=== PATIENT | male | born 1935 | race Caucasian/White ===

== ENCOUNTER 2019-05-13 16:56 | Emergency (ER) | payer MEDICARE, OTHER, SELFPAY ==
[2019-05-13 17:00] VITALS: BP 90/60; PULSE 69; RESP 18; TEMP 36.8; O2SAT 96; BMI 23.1
--- NOTE | 2019-05-13 17:10 | ED_ITS ---
Entered by Lu Otto, acting as scribe for Documented by User: Magen Camarillo MD 05/13/19 21:02 HPI - Abdominal Pain General: Chief Complaint: Abdominal Pain Stated Complaint: POSSIBLE BOWEL OBSTRUCTION Time Seen by Provider: 05/13/19 17:02 [facility] ED PFSH: Social History Smoking and tobacco status: current every day smoker Course Vital Signs: Vital signs: Vital Signs Temperature 98.3 F 05/13/19 17:00 Pulse Rate 92 05/13/19 20:12 Respiratory Rate 18 05/13/19 17:00 Blood Pressure 144/82 05/13/19 20:12 Pulse Oximetry 95 05/13/19 20:12 MDM - Abdominal Pain MDM Narrative: Medical decision making narrative: I took patient over from Dr. Maria. Patient feels much improved here after a bowel movement has no more pain. I did go over his CT findings including the possible mass along with pancreatic pseudocyst. His lipase is mildly elevated here but he has no pain in his epigastric region. He does have a colitis and will start him on Levaquin. Patient is requesting discharge I feel he is stable for discharge. He has an oncologist that he had a scan 2 weeks ago and has follow-up with his oncologist. I will print out his CT report and he is to follow-up with his oncologist within a week and go over this. If he has any worsening or pain he is to return immediately. Patient understands agrees to plan. Lab Data: Labs: Lab Results 05/13/19 05/13/19 05/13/19 Range/Units 17:21 17:21 19:32 WBC 10.9 H (4.0-10.0) 10^3/ uL RBC 4.12 (4.1-5.3) 10^6/u L Hgb 13.4 (11.7-16.6) g/dL Hct 42.7 (42.0-52.0) % MCV 103.6 H (80-94) fL MCH 32.5 (28.0-34.0) pg MCHC 31.4 (30.0-36.0) g/dL RDW 15.8 H (12.1-15.1) % Plt Count 175 (130-400) 10^3/c mm MPV 9.9 (7.4-10.4) fL Neut % (Auto) 91.8 % Lymph % (Auto) 5.1 % [place] % (Auto) 1.8 % Eos % (Auto) 0.3 % Baso % (Auto) 0.3 % Neut # (Auto) 10.0 H (1.8-7.7) 10^3/u L Lymph # (Auto) 0.6 L (0.8-4.8) 10^3/u L [place] # (Auto) 0.2 (0.2-0.9) 10^3/u L Eos # (Auto) 0.0 (0.0-0.8) 10^3/u L Baso # (Auto) 0.0 (0.0-0.1) 10^3/u L Nucleated RBC % (a uto) 0 % Nucleated RBCs # 0.0 /100WBC Sodium 138 (136-145) mmol/L Potassium 4.5 (3.5-5.1) mmol/L Chloride 104 (98-107) mmol/L Carbon Dioxide 22 (22-29) mmol/L Anion Gap 16.5 (5-19) BUN 23 (8-23) mg/dL Creatinine 1.0 (0.7-1.2) mg/dL Glucose 252 H (65-115) mg/dL Calculated Osmolal ity 291 (285-295) mOsm/k g Calcium 9.8 (8.5-10.5) mg/dL Total Bilirubin 1.4 H (0.15-1.2) mg/dL AST 19 (0-40) U/L ALT 31 (0-41) U/L Alkaline Phosphata se 82 (40-130) IU/L Total Protein 6.6 (6.6-8.7) g/dL Albumin 3.5 (3.5-5.2) g/dL Globulin 3.1 (1.3-4.6) g/dL Lipase 475 H (13-60) U/L Urine Color Straw (Yellow) Urine Appearance Clear (CLEAR) Urine pH 5 (5-7) Ur Specific Gravit y 1.005 (1.005-1.030) Urine Protein Neg (Negative) Urine Glucose (UA) Trace H (Normal) Urine Ketones Negative (Negative) Urine Blood 2+ H (Negative) Urine Nitrate Negative (Negative) Urine Bilirubin Neg (NEGATIVE) Urine Urobilinogen Norm (Negative) mg/dL Ur Leukocyte Kasey ase Negative (Negative) Urine RBC 0-4 H (0-2) /hpf Urine WBC None (0-5) /hpf Ur Squamous Epith Cells None (0-5) Urine Bacteria 1+ H (NONE) Hyaline Casts 0-4 H Imaging Data ^: CT Abd/Pel: Radiologist's impression: [address] [address] [address] Scan Report Signed Patient: Max Hidalgo Unit #: [id number] : 1935 Age/Sex: 84 / M ADM Date: 05/13/19 Loc: ER Room/Bed: Attending Dr: Ordering Provider/Ordering MD: Alejo Davis DO Date of Service: 05/13/19 Procedure(s): CT abdomen pelvis w con* [id number] Accession Number(s): [id number] Report Number: [id number] PROCEDURE INFORMATION: Exam: CT Abdomen And Pelvis With Contrast Exam date and time: 05/13/2019 6:23 PM Age: 84 years old Clinical indication: Other: Diarrhea; Abdominal pain; Prior surgery; Surgery type: Pacemaker, gb; Additional info: Abd pain TECHNIQUE: Imaging protocol: Computed tomography of the abdomen and pelvis with intravenous contrast. Total DLP: 850.93 mGy-cm Radiation optimization: All CT scans at this facility use at least one of these dose optimization techniques: automated exposure control; mA and/or kV adjustment per patient size (includes targeted exams where dose is matched to clinical indication); or iterative reconstruction. Contrast material: OMNI 300; Contrast volume: 95 ml; Contrast route: LT HAND; COMPARISON: No relevant prior studies available. FINDINGS: Heart: Mitral annulus calcifications. Mediastinum: Hiatal hernia. Liver: Normal. No mass. Gallbladder and bile ducts: Cholecystectomy. The bile ducts are normal. Pancreas: Coarse calcifications scattered throughout the pancreas. 1.5 cm cyst in the pancreatic tail. Spleen: Normal. No splenomegaly. Adrenals: Normal. No mass. Kidneys and ureters: Fluid density cysts in the bilateral kidneys. 4.4 cm soft tissue density lesion in the superior right kidney. Stomach and bowel: Mild fluid distention of the stomach. The small bowel is unremarkable. Mild fluid distension of the proximal and transverse colon. The splenic flexure, descending, and sigmoid portions of the colon are decompressed with circumferential wall thickening. Diverticulosis of the descending and sigmoid colon. Appendix: No evidence of appendicitis. Intraperitoneal space: Unremarkable. No free air. No significant fluid collection. Vasculature: Diffuse atherosclerotic calcifications. Lymph nodes: Unremarkable. No enlarged lymph nodes. Bladder: Mild distention of the urinary bladder. No wall thickening. Reproductive: Enlarged prostate with coarse calcifications. Bones/joints: Degenerative lumbar spine. No compression fracture. Soft tissues: Small fat containing umbilical hernia. CT/CT abdomen pelvis w con* [id number] IMPRESSION: 1. Wall thickening of the left colon, consistent with infectious versus inflammatory colitis. Mild fluid distention of the proximal colon. 2. Diverticulosis of the distal colon. 3. 4.4 cm soft tissue density lesion in the superior right kidney. This could represent a proteinaceous cyst or solid neoplasm. Follow-up with renal ultrasound is recommended. 4. 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 This could represent a pseudocyst or cystic neoplasm such as at intraductal papillary mucinous neoplasm. Discharge Plan Discharge Patient Disposition: Home, Self-Care Clinical Impression: Colitis Constipation Qualifiers: Constipation type: unspecified constipation type Qualified Code(s): K59.00 - Constipation, unspecified Condition: Stable Prescriptions: New Levaquin 750 mg tablet 750 mg PO DAILY 5 Days RF: 0 No Action terazosin 5 mg capsule 5 mg PO DAILY RF: 0 atorvastatin 40 mg tablet 20 mg PO DAILY RF: 0 glipizide 10 mg tablet extended release 24hr 10 mg PO DAILY RF: 0 prednisone 5 mg tablet See Rx Instructions .ROUTE .COMPLEX RF: 0 quinapril 40 mg tablet 40 mg PO DAILY RF: 0 nortriptyline 25 mg capsule 25 mg PO BEDTIME PRN (Reason: Insomnia) RF: 0 tamsulosin 0.4 mg capsule 0.4 mg PO DAILY RF: 0 metformin 1,000 mg tablet 1,000 mg PO DAILY RF: 0 finasteride 5 mg tablet 5 mg PO DAILY RF: 0 Xarelto 20 mg tablet 20 mg PO DAILY RF: 0 Fiber (psyllium husk) 0.4 gram Capsule 0.4 g PO DAILY RF: 0 Discharge Orders: Discharge Order (Routine); Ordered 05/13/19 Ordered By: Magen Camarillo Referrals: Nic Wang MD [Primary Care Provider] - Discharge Diet: Advance as tolerated Discharge Activity: Resume usual activity Patient Instructions: Constipation (ED) Discharge Date/Time: 05/13/19 20:12 Coding Level of Care Code ED Options Advisor for Chg Fwd Exam Comprehensive Documented by User: Alejo Davis DO 05/14/19 15:42 HPI - Abdominal Pain General: Chief Complaint: Abdominal Pain Stated Complaint: POSSIBLE BOWEL OBSTRUCTION Time Seen by Provider: 05/13/19 17:02 Source: patient, family and EMS Mode of arrival: EMS Limitations: no limitations History of Present Illness: HPI narrative: 84 yo male presents with abdomen pain. pt states this started today. pt has had constipation. pt states nothing makes this better or worse. pt MD elicited complaint: abdominal pain Pertinent past history: constipation Onset (ago): day(s) (today) Pain Consistency: constant Location: Diffuse Severity: moderate Quality: sharp Exacerbating factors: movement Relieving factors: nothing Associated Symptoms: Reports change in bowel habits, constipation, nausea and vomiting; Denies chills, dysuria and fever(s) Review of Systems Const: Denies: fever, chills, body aches, change in appetite, fatigue or malaise ENMT: Denies: throat pain, ear pain, nasal discharge or nasal congestion Card: Denies: chest pain, edema, shortness of breath on exertion or shortness of breath when lying down Resp: Denies: shortness of breath, productive cough or non-productive cough GI: Reports: nausea, vomiting, constipation and change in bowel habits : Denies: flank pain, painful urination, urinary frequency or urinary urgency Skin/Breast: Denies: rash or itching PFSH ED PFSH: Social History Smoking and tobacco status: current every day smoker Physical Exam Const: COMMON NORMALS: no apparent distress GENERAL APPEARANCE: cooperative and comfortable ORIENTATION/CONSCIOUSNESS: Yes awake, Yes oriented to person, Yes oriented to place and Yes oriented to time HENMT: COMMON NORMALS: normocephalic, head/scalp atraumatic, hearing grossly normal bilaterally, external ears normal, EAC's normal, TM's normal bilaterally, nasal mucous membranes and turbinates normal, moist oral mucous membranes and oropharynx normal HEAD & SCALP: normocephalic and atraumatic NOSE: nasal mucous membranes and turbinates normal EXTERNAL EAR: Yes external ears normal EXTERNAL AUDITORY CANAL: EAC's normal TYMPANIC MEMBRANE: TM's normal devon aterally Eye: COMMON NORMALS: PERRL, EOMs intact bilaterally, conjunctivae normal and no scleral icterus CONJUNCTIVA: Yes conjunctivae normal PUPIL: Yes PERRL Neck/C-Spine: COMMON NORMALS: full ROM, no lymphadenopathy, supple and no JVD Lymph: LYMPHATIC: no lymphadenopathy noted and no lymphedema noted Resp: COMMON NORMALS: normal respiratory effort, no retractions, no use of accessory muscles and clear to auscultation bilaterally AUSCULTATION: clear to auscultation bilaterally Cardio: COMMON NORMALS: no JVD, regular rate, regular rhythm and no murmurs RATE: regular rate RHYTHM: regular rhythm Extremity: COMMON NORMALS: normal to inspection, normal capillary refill, no clubbing, cyanosis or edema, no calf tenderness and no pedal edema Neuro: SENSORIUM/ORIENTATION: Yes oriented to person, Yes oriented to place and Yes oriented to time Skin: COMMON NORMALS: no rashes or lesions noted GENERAL SKIN EXAM: no rashes or lesions noted Course ED course: Patient initial complaint was of abdominal pain. CT is pending care turned over to Dr. Camarillo Vital Signs: Vital signs: Vital Signs Temperature 98.3 F 05/13/19 17:00 Pulse Rate 92 05/13/19 20:12 Respiratory Rate 18 05/13/19 17:00 Blood Pressure 144/82 05/13/19 20:12 Pulse Oximetry 95 05/13/19 20:12 MDM - Abdominal Pain Lab Data: Labs: Lab Results 05/13/19 05/13/19 05/13/19 Range/Units 17:21 17:21 19:32 WBC 10.9 H (4.0-10.0) 10^3/ uL RBC 4.12 (4.1-5.3) 10^6/u L Hgb 13.4 (11.7-16.6) g/dL Hct 42.7 (42.0-52.0) % MCV 103.6 H (80-94) fL MCH 32.5 (28.0-34.0) pg MCHC 31.4 (30.0-36.0) g/dL RDW 15.8 H (12.1-15.1) % Plt Count 175 (130-400) 10^3/c mm MPV 9.9 (7.4-10.4) fL Neut % (Auto) 91.8 % Lymph % (Auto) 5.1 % [place] % (Auto) 1.8 % Eos % (Auto) 0.3 % Baso % (Auto) 0.3 % Neut # (Auto) 10.0 H (1.8-7.7) 10^3/u L Lymph # (Auto) 0.6 L (0.8-4.8) 10^3/u L [place] # (Auto) 0.2 (0.2-0.9) 10^3/u L Eos # (Auto) 0.0 (0.0-0.8) 10^3/u L Baso # (Auto) 0.0 (0.0-0.1) 10^3/u L Nucleated RBC % (a uto) 0 % Nucleated RBCs # 0.0 /100WBC Sodium 138 (136-145) mmol/L Potassium 4.5 (3.5-5.1) mmol/L Chloride 104 (98-107) mmol/L Carbon Dioxide 22 (22-29) mmol/L Anion Gap 16.5 (5-19) BUN 23 (8-23) mg/dL Creatinine 1.0 (0.7-1.2) mg/dL Glucose 252 H (65-115) mg/dL Calculated Osmolal ity 291 (285-295) mOsm/k g Calcium 9.8 (8.5-10.5) mg/dL Total Bilirubin 1.4 H (0.15-1.2) mg/dL AST 19 (0-40) U/L ALT 31 (0-41) U/L Alkaline Phosphata se 82 (40-130) IU/L Total Protein 6.6 (6.6-8.7) g/dL Albumin 3.5 (3.5-5.2) g/dL Globulin 3.1 (1.3-4.6) g/dL Lipase 475 H (13-60) U/L Urine Color Straw (Yellow) Urine Appearance Clear (CLEAR) Urine pH 5 (5-7) Ur Specific Gravit y 1.005 (1.005-1.030) Urine Protein Neg (Negative) Urine Glucose (UA) Trace H (Normal) Urine Ketones Negative (Negative) Urine Blood 2+ H (Negative) Urine Nitrate Negative (Negative) Urine Bilirubin Neg (NEGATIVE) Urine Urobilinogen Norm (Negative) mg/dL Ur Leukocyte Kasey ase Negative (Negative) Urine RBC 0-4 H (0-2) /hpf Urine WBC None (0-5) /hpf Ur Squamous Epith Cells None (0-5) Urine Bacteria 1+ H (NONE) Hyaline Casts 0-4 H Discharge Plan Discharge Patient Disposition: Home, Self-Care Clinical Impression: Colitis Constipation Qualifiers: Constipation type: unspecified constipation type Qualified Code(s): K59.00 - Constipation, unspecified Condition: Stable Prescriptions: New Levaquin 750 mg tablet 750 mg PO DAILY 5 Days RF: 0 No Action terazosin 5 mg capsule 5 mg PO DAILY RF: 0 atorvastatin 40 mg tablet 20 mg PO DAILY RF: 0 glipizide 10 mg tablet extended release 24hr 10 mg PO DAILY RF: 0 prednisone 5 mg tablet See Rx Instructions .ROUTE .COMPLEX RF: 0 quinapril 40 mg tablet 40 mg PO DAILY RF: 0 nortriptyline 25 mg capsule 25 mg PO BEDTIME PRN (Reason: Insomnia) RF: 0 tamsulosin 0.4 mg capsule 0.4 mg PO DAILY RF: 0 metformin 1,000 mg tablet 1,000 mg PO DAILY RF: 0 finasteride 5 mg tablet 5 mg PO DAILY RF: 0 Xarelto 20 mg tablet 20 mg PO DAILY RF: 0 Fiber (psyllium husk) 0.4 gram Capsule 0.4 g PO DAILY RF: 0 Discharge Orders: Discharge Order (Routine); Ordered 05/13/19 Ordered By: Magen Camarillo Referrals: Nic Wang MD [Primary Care Provider] - Discharge Diet: Advance as tolerated Discharge Activity: Resume usual activity Patient Instructions: Constipation (ED) Discharge Date/Time: 05/13/19 20:12 Coding Level of Care Code ED Options Advisor for Chg Fwd Exam Comprehensive The documentation recorded by the scribFam barber Bridget Annette, accurately reflects the service I personally performed and the decisions made by me, Alejo Davis, DO May 13, 2019 16:56
[2019-05-13 17:32] LABS: Basophils % 0.3 %; Eosinophils % 0.3 %; Hematocrit 42.7 % (42.0-52.0); Hemoglobin 13.4 g/dL (11.7-16.6); Lymphocytes # 0.6 10^3/uL (0.8-4.8); Lymphocytes % 5.1 %; Mean Corpuscular HGB Conc 31.4 g/dL (30.0-36.0); Mean Corpuscular Hemoglobin 32.5 pg (28.0-34.0); Mean Corpuscular Volume 103.6 fL (80-94); Mean Platelet Volume 9.9 fL (7.4-10.4); Monocytes # 0.2 10^3/uL (0.2-0.9); Monocytes % 1.8 %; Neutrophils % 91.8 %; Nucleated Red Blood Cells % 0 %; Platelet Count 175 10^3/cmm (130-400); Red Blood Count 4.12 10^6/uL (4.1-5.3); Red Cell Distribution Width 15.8 % (12.1-15.1); White Blood Count 10.9 10^3/uL (4.0-10.0)
[2019-05-13 17:46] LABS: Alanine Aminotransferase 31 U/L (0-41); Albumin Level 3.5 g/dL (3.5-5.2); Alkaline Phosphatase 82 IU/L (40-130); Anion Gap 16.5 (5-19); Aspartate Amino Transferase 19 U/L (0-40); Blood Urea Nitrogen 23 mg/dL (8-23); Calcium 9.8 mg/dL (8.5-10.5); Carbon Dioxide 22 mmol/L (22-29); Chloride 104 mmol/L (98-107); Globulin 3.1 g/dL (1.3-4.6); Glucose 252 mg/dL (65-115); Osmolality Calculated 291 mOsm/kg (285-295); Potassium 4.5 mmol/L (3.5-5.1); Sodium 138 mmol/L (136-145); Total Bilirubin 1.4 mg/dL (0.15-1.2); Total Protein 6.6 g/dL (6.6-8.7)
--- NOTE | 2019-05-13 17:50 | CTR_ITS ---
PROCEDURE INFORMATION: Exam: CT Abdomen And Pelvis With Contrast Exam date and time: 05/13/2019 6:23 PM Age: 84 years old Clinical indication: Other: Diarrhea; Abdominal pain; Prior surgery; Surgery type: Pacemaker, gb; Additional info: Abd pain TECHNIQUE: Imaging protocol: Computed tomography of the abdomen and pelvis with intravenous contrast. Total DLP: 850.93 mGy-cm Radiation optimization: All CT scans at this facility use at least one of these dose optimization techniques: automated exposure control; mA and/or kV adjustment per patient size (includes targeted exams where dose is matched to clinical indication); or iterative reconstruction. Contrast material: OMNI 300; Contrast volume: 95 ml; Contrast route: LT HAND; COMPARISON: No relevant prior studies available. FINDINGS: Heart: Mitral annulus calcifications. Mediastinum: Hiatal hernia. Liver: Normal. No mass. Gallbladder and bile ducts: Cholecystectomy. The bile ducts are normal. Pancreas: Coarse calcifications scattered throughout the pancreas. 1.5 cm cyst in the pancreatic tail. Spleen: Normal. No splenomegaly. Adrenals: Normal. No mass. Kidneys and ureters: Fluid density cysts in the bilateral kidneys. 4.4 cm soft tissue density lesion in the superior right kidney. Stomach and bowel: Mild fluid distention of the stomach. The small bowel is unremarkable. Mild fluid distension of the proximal and transverse colon. The splenic flexure, descending, and sigmoid portions of the colon are decompressed with circumferential wall thickening. Diverticulosis of the descending and sigmoid colon. Appendix: No evidence of appendicitis. Intraperitoneal space: Unremarkable. No free air. No significant fluid collection. Vasculature: Diffuse atherosclerotic calcifications. Lymph nodes: Unremarkable. No enlarged lymph nodes. Bladder: Mild distention of the urinary bladder. No wall thickening. Reproductive: Enlarged prostate with coarse calcifications. Bones/joints: Degenerative lumbar spine. No compression fracture. Soft tissues: Small fat containing umbilical hernia. CT/CT abdomen pelvis w con* [id number] IMPRESSION: 1. Wall thickening of the left colon, consistent with infectious versus inflammatory colitis. Mild fluid distention of the proximal colon. 2. Diverticulosis of the distal colon. 3. 4.4 cm soft tissue density lesion in the superior right kidney. This could represent a proteinaceous cyst or solid neoplasm. Follow-up with renal ultrasound is recommended. 4. 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 This could represent a pseudocyst or cystic neoplasm such as at intraductal papillary mucinous neoplasm. Radiation Dose CTDIVOL = (mGy): DLP = 850.93 (mGy-cm)
[2019-05-13 17:57] LABS: Lipase 475 U/L (13-60)
--- NOTE | 2019-05-13 18:12 | PC.NURSE ---
Patient passed large amount of stool, brown, non-formed.
[2019-05-13] MEDS: sodium chloride 0.9% 1,000 ML 999 ML IV (18:27)
[2019-05-13] MEDS: iohexol 300 mg/mL 100 mL Btl 95 ML IV (19:02)
--- NOTE | 2019-05-13 19:07 | PC.NURSE ---
pt back from CT scan
[2019-05-13 20:05] LABS: Urine Appearance Clear (CLEAR); Urine Color Straw (Yellow)
[2019-05-13 20:06] LABS: Add Urine Microscopic? YES; Bilirubin Urine Neg (NEGATIVE); Blood Urine 2+ (Negative); Glucose Urine UA Trace (Normal); Ketones Urine Negative (Negative); Leukocyte Esterase Urine Negative (Negative); Nitrate Urine Negative (Negative); Protein Urine Neg (Negative); Specific Gravity, Urine 1.005 (1.005-1.030); Urobilinogen Urine Norm (Negative); pH Urine 5 (5-7)
[2019-05-13 20:09] LABS: Add Urine Culture? No; Bacteria Urine 1+; Hyaline Casts Urine 0-4; RBC Urine 0-4 /hpf (0-2)
[2019-05-13 20:12] VITALS: BP 144/82; PULSE 92; O2SAT 95
== END 2019-05-13 20:12 | disposition home or self-care (01) ==
PROVIDERS: Family Medicine; Emergency Provider Emergency Medicine; Family Provider Family Medicine; PCP Family Medicine
DX: K52.9 Noninfective gastroenteritis and colitis, unspecified (principal); K59.00 Constipation, unspecified; F17.200 Nicotine dependence, unspecified, uncomplicated
CPT/HCPCS: 12345; 36415; 74177; 80053; 81001; 83690; 85025; 96360; 96361; 96374; 96375; 99282; 99283; J7030; Q9967

== ENCOUNTER 2019-09-08 14:05 | Outpatient (CLI) | payer MEDICARE, OTHER, SELFPAY ==
--- NOTE | 2019-09-08 14:15 | USCV_ITS ---
Max Hidalgo Age: 84 Gender: M : 1935 Exam Date: 09/08/2019 14:29 Ordering Phys: Lora Valencia MD ([email or web address]) Technologist: Suman Banerjee Exam Location: [facility] [place] Indication: MURMUR BP: 110 / 70 HR: Rhythm: Sinus Technical Quality: Adequate MEASUREMENTS (Male / Female) Normal Values 2D ECHO LV Diastolic Diameter PLAX 3.8 cm 4.2 - 5.9 / 3.9 - 5.3 cm LV Systolic Diameter PLAX 2.5 cm IVS Diastolic Thickness 1.4 cm 0.6 - 1.0 / 0.6 - 0.9 cm IVS Systolic Thickness 1.3 cm LVPW Diastolic Thickness 1.0 cm 0.6 - 1.0 / 0.6 - 0.9 cm LVPW Systolic Thickness 1.2 cm LVOT Diameter 2.0 cm LV Ejection Fraction 2D Teich 63.4 % LV Ejection Fraction MOD 2C 62.2 % LV Ejection Fraction 2C AL 62.8 % LA Diameter 4.8 cm LA Width 4.8 cm LA Height 4.2 cm RA Width 4.5 cm RA Height 5.3 cm M-MODE LV Diastolic Diameter MM 4.7 cm 4.2 - 5.9 / 3.9 - 5.3 cm LV Systolic Diameter MM 3.8 cm LV Ejection Fraction MM Teich 39.3 % IVS Diastolic Thickness MM 1.5 cm 0.6 - 1.0 / 0.6 - 0.9 cm IVS Systolic Thickness MM 1.9 cm LVPW Diastolic Thickness MM 1.1 cm 0.6 - 1.0 / 0.6 - 0.9 cm LVPW Systolic Thickness MM 2.0 cm RV Diastolic Diameter MM 1.2 cm Aortic Annulus Diameter 3.1 cm LA Ao Ratio MM 1.6 MV E Point Septal Separation 1.2 cm DOPPLER AV Peak Velocity 299.0 cm/s LVOT Peak Velocity 99.0 cm/s AV Area Cont Eq vti 1.1 cm squared AV Area Cont Eq pk 1.1 cm squared MV Area PHT 5.0 cm squared Mitral E to A Ratio 2.0 MV E' Velocity 9.0 cm/s Mitral E to MV E' Ratio 9.5 Mitral E to LV E' Lateral Ratio 9.3 Mitral E to LV E' Septal Ratio 9.9 TR Peak Velocity 304.0 cm/s TR Peak Gradient 37.0 mmHg TV Peak E Velocity 135.0 cm/s Right Atrial Pressure 3.0 mmHg Pulmonary Artery Systolic Pressu 40.0 mmHg PV Peak Velocity 136.0 cm/s FINDINGS Left Ventricle Normal left ventricular cavity size. Normal left ventricular systolic function. Left ventricular ejection fraction is estimated at 55 %. Abnormal septal motion consistent with conduction abnormality. Right Ventricle Normal right ventricular size. Catheter/pacemaker wire visualized in the right ventricle. Right Atrium Normal right atrial size. Catheter/pacemaker wire in the right atrial cavity. Left Atrium The left atrium is normal in size. Mitral Valve Severely thickened mitral valve. Severe mitral annular calcification. No mitral valve stenosis. No mitral valve regurgitation. Aortic Valve Moderate aortic valve calcification. Moderate aortic valve stenosis, mean gradient 17.8 mmHg, JAJA 1.1 cm squared. Trace aortic valve regurgitation. Tricuspid Valve [id number] tricuspid valve regurgitation. Pulmonic Valve Structurally normal pulmonic valve without significant stenosis. There is no pulmonic regurgitation. Pericardium Normal pericardium without effusion. Aorta Normal ascending aorta dimension. CONCLUSIONS 1-Normal left ventricular cavity size. Normal left ventricular systolic function. Left ventricular ejection fraction is estimated at 55 %. Abnormal septal motion consistent with conduction abnormality. 2-Severely thickened mitral valve. Severe mitral annular calcification. No mitral valve stenosis. No mitral valve regurgitation. 3-Moderate aortic valve calcification. Moderate aortic valve stenosis, mean gradient 17.8 mmHg, JAJA 1.1 cm squared. Trace aortic valve regurgitation. 4-Normal right ventricular size. Catheter/pacemaker wire visualized in the right ventricle. 5-Normal right atrial size. Catheter/pacemaker wire in the right atrial cavity. 6-Right atrial pressure is around 5 mm of mercury. 7-There is no pericardial effusion. 8-When compared to the prior echocardiogram dated 11/22/2015 there appeared to be worsening of aortic stenosis from 1.3 cm squared to 1.1 cm squared which still in a moderate category there is also worsening of mitral annulus calcification there appeared to be right atrial and right ventricle pacemaker/ICD catheter device. Lora Valencia MD (Electronically Signed) Final Date: 08 September 2019 18:43 S
== END 2019-09-08 14:06 | disposition home or self-care (01) ==
LOC: RAD 14:09
PROVIDERS: Family Provider Family Medicine; PCP Family Medicine; Visit Provider Internal Medicine Cardiovascular Disease
DX: R01.1 Cardiac murmur, unspecified (principal); I08.0 Rheumatic disorders of both mitral and aortic valves; Z95.0 Presence of cardiac pacemaker
CPT/HCPCS: 93306

== ENCOUNTER 2020-07-30 08:18 | Emergency (ER) | payer MEDICARE, OTHER, SELFPAY ==
[2020-07-30 08:31] VITALS: BP 158/58; PULSE 72; RESP 15; TEMP 36.8; O2SAT 97; BMI 22.4
--- NOTE | 2020-07-30 08:31 | XRR_ITS ---
PROCEDURE INFORMATION: Exam: XR Right Knee Exam date and time: 07/30/2020 8:34 AM Age: 85 years old Clinical indication: Pain; Knee; Right; Prior surgery; Surgery date: 6+ months TECHNIQUE: Imaging protocol: XR Right knee. Views: 3 views. COMPARISON: No relevant prior studies available. FINDINGS: Bones/joints: No fracture or other acute bony abnormalities are seen. There is a large joint effusion with fluid in the suprapatellar bursa. Prominent chronic degenerative disease is present with joint space narrowing, sclerosis and osteophytes. Soft tissues: Normal. Vasculature: There is prominent atherosclerotic calcification. XR/XR knee RT 3V* [id number] IMPRESSION: 1. No fracture seen. 2. Large joint effusion. 3. Prominent DJD. 4. Prominent atherosclerotic calcification.
--- NOTE | 2020-07-30 08:40 | XRR_ITS ---
PROCEDURE INFORMATION: Exam: XR Chest Exam date and time: 07/30/2020 8:41 AM Age: 85 years old Clinical indication: Cough and dyspnea; Additional info: Dyspnea/cough TECHNIQUE: Imaging protocol: XR of the chest. Views: 1 view. COMPARISON: [facility] Chest 2 views 02/23/2019 10:18 AM FINDINGS: Tubes, catheters and devices: A permanent pacemaker appears in satisfactory position. Lungs: Unremarkable. No consolidation. Pleural spaces: Unremarkable. No pleural effusion. No pneumothorax. Heart/Mediastinum: The heart is not enlarged. There is calcification of the aorta. Bones/joints: Unremarkable. Soft tissues: There are clips in the right axilla from old surgery. XR/XR chest 1V portable [id number] IMPRESSION: No acute cardiopulmonary abnormality.
--- NOTE | 2020-07-30 08:43 | W.ED.EXTPRO ---
HPI - Extremity Problem General: Chief complaint: Extremity Injury, Lower Stated complaint: RIGHT KNEE PAIN POST FALL ON WED Time Seen by Provider: 07/30/20 08:21 History of Present Illness: HPI Narrative: 85-year-old male presents emergency room complaining of right knee pain. He fell 2 days ago and landed on his knees he has an abrasion to his left knee which is really bothering him but he has some swelling on the right knee. He has not been able to walk on it or bear full weight he says since that happened. He had a low-grade temp of 100.4 last night he denies dysuria urgency frequency cough or shortness of breath no abdominal pain. He has multiple other skin tears including one on the left shoulder left forearm right hand and on the left knee. He has no facial or head injuries that I can distinguish. Associated symptoms: Deny chest pain, fever(s) or rash Review of Systems Const: Denies: fever(s), chills, body aches, change in appetite, fatigue or malaise ENMT: Denies: throat pain, ear or mastoid pain, nasal discharge or nasal congestion Card: Denies: chest pain, edema, dyspnea on exertion or orthopnea Resp: Denies: dyspnea, productive cough or non-productive cough GI: Denies: abdominal pain, nausea, vomiting, hematemesis, coffee ground emesis, diarrhea, constipation, bloating, hematochezia or melena : Denies: flank pain, dysuria, urinary frequency or urinary urgency Skin/Breast: Denies: rash or pruritus PFS ED PFSH: Medical History Atrial fibrillation History of pacemaker Social History Smoking and tobacco status: current every day smoker Physical Exam Const: COMMON NORMALS: no acute distress GENERAL APPEARANCE: cooperative and comfortable ORIENTATION/CONSCIOUSNESS: Yes awake, Yes oriented to person, Yes oriented to place and Yes oriented to time HENMT: COMMON NORMALS: normocephalic, atraumatic and hearing grossly normal bilaterally HEAD & SCALP: normocephalic and atraumatic Neck/C-Spine: COMMON NORMALS: no JVD Resp: COMMON NORMALS: normal respiratory effort, No retractions, No use of accessory muscles and clear to auscultation bilaterally AUSCULTATION: clear to auscultation bilaterally Cardio: COMMON NORMALS: no JVD, regular rate, regular rhythm and No murmurs present (Cardio) RATE: regular rate RHYTHM: regular rhythm GI: COMMON NORMALS: Soft to palpation and No hepatosplenomegaly present AUSCULTATION: Yes normoactive bowel sounds PALPATION: Yes Soft to palpation, No Tenderness to palpation present (GI), No Guarding due to palpation present (GI) and Yes No hepatosplenomegaly present Extremity: COMMON NORMALS: normal to inspection, capillary refill normal, no clubbing, cyanosis or edema, no calf tenderness and no pedal edema Neuro: SENSORIUM/ORIENTATION: Yes oriented to person, Yes oriented to place and Yes oriented to time Skin: COMMON NORMALS: no rashes or lesions noted GENERAL SKIN EXAM: no rashes or lesions noted Course Vital Signs: Vital signs: Vital Signs Temperature 98.3 F 07/30/20 08:31 Pulse Rate 75 07/30/20 12:06 Respiratory Rate 16 07/30/20 12:06 Blood Pressure 142/55 07/30/20 11:05 Pulse Oximetry 95 07/30/20 11:05 MDM - Extremity (Nontraumatic) MDM Narrative: Medical decision making narrative: Effusion in the knee no fracture on CT lot of arthritic changes it is warm to the touch and swollen but is not indurated or red and inflamed. His white count is normal and the he gets more inflammation of his osteoarthritis combined with probably some hemarthrosis from his anticoagulant. We will go ahead and start him on a steroid hydrocodone and anti-inflammatory recheck with his primary care doctor return if has problems. Lab Data: Labs: Lab Results 07/30/20 07/30/20 07/30/20 Range/Units 09:05 09:05 10:40 WBC 8.2 (4.0-10.0) 10^3/ uL RBC 4.00 L (4.1-5.3) 10^6/u L Hgb 13.3 (11.7-16.6) g/dL Hct 39.9 L (42.0-52.0) % MCV 99.8 H (80-94) fL MCH 33.3 (28.0-34.0) pg MCHC 33.3 (30.0-36.0) g/dL RDW 12.9 (12.1-15.1) % Plt Count 143 (130-400) 10^3/c mm MPV 10.1 (7.4-10.4) fL Neut % (Auto) 72.4 % Lymph % (Auto) 15.5 % [place] % (Auto) 10.4 % Eos % (Auto) 0.9 % Baso % (Auto) 0.4 % Neut # (Auto) 5.95 (1.8-7.7) 10^3/u L Lymph # (Auto) 1.3 (0.8-4.8) 10^3/u L [place] # (Auto) 0.9 (0.2-0.9) 10^3/u L Eos # (Auto) 0.1 (0.0-0.8) 10^3/u L Baso # (Auto) 0.0 (0.0-0.1) 10^3/u L Nucleated RBC % (a uto) 0 % Nucleated RBCs # 0.0 /100WBC Sodium 139 (136-145) mmol/L Potassium 3.9 (3.5-5.1) mmol/L Chloride 103 (98-107) mmol/L Carbon Dioxide 24 (22-29) mmol/L Anion Gap 15.9 (5-19) BUN 18 (8-23) mg/dL Creatinine 0.6 L (0.7-1.2) mg/dL GFR Calculation Not Reportable Glucose 124 H (65-115) mg/dL Calculated Osmolal ity 291 (285-295) mOsm/k g Calcium 8.7 (8.5-10.5) mg/dL Total Bilirubin 1.1 (0.15-1.2) mg/dL AST 12 (0-40) U/L ALT 26 (0-41) U/L Alkaline Phosphata se 72 (40-130) IU/L Creatine Kinase 47 (39-308) U/L C-Reactive Protein 101.8 H (0.0-4.9) mg/L Total Protein 6.5 L (6.6-8.7) g/dL Albumin 3.6 (3.5-5.2) g/dL Globulin 2.9 (1.3-4.6) g/dL Urine Color Yellow (Yellow) Urine Appearance Clear (CLEAR) Urine pH 5 (5-7) Ur Specific Gravit y 1.015 (1.005-1.030) Urine Protein Neg (Negative) Urine Glucose (UA) Trace H (Normal) Urine Ketones Negative (Negative) Urine Blood 2+ H (Negative) Urine Nitrate Negative (Negative) Urine Bilirubin Neg (Negative) Urine Urobilinogen Norm (Negative) mg/dL Ur Leukocyte Kasey ase Negative (Negative) Urine RBC 0-4 H (0-2) /hpf Urine WBC Rare (0-5) /hpf Ur Squamous Epith Cells None (0-5) /hpf Amorphous Sediment Not Reportable Urine Bacteria Trace (NONE) /hpf Discharge Plan Discharge Patient Disposition: Home Clinical Impression: Osteoarthritis of right knee Condition: Stable Prescriptions: New hydrocodone-acetaminophen 5-325 mg tablet 1 tab PO Q6H PRN (Reason: pain) Qty: 25 RF: 0 diclofenac sodium 75 mg tablet,delayed release (DR/EC) 75 mg PO Q12H PRN (Reason: pain) Qty: 20 RF: 0 Medrol (Jose) 4 mg tablets,dose pack See Rx Instructions .ROUTE .COMPLEX Qty: 21 RF: 0 No Action metformin 1,000 mg tablet 1,000 mg PO DAILY RF: 0 linagliptin-metformin 5-1,000 mg tablet, IR - ER, biphasic 24hr 1 tab PO DAILY RF: 0 quinapril 40 mg tablet 40 mg PO DAILY RF: 0 terazosin 5 mg capsule 5 mg PO DAILY RF: 0 atorvastatin 40 mg tablet 20 mg PO DAILY RF: 0 glipizide 10 mg tablet extended release 24hr 10 mg PO DAILY RF: 0 prednisone 5 mg tablet See Rx Instructions .ROUTE .COMPLEX RF: 0 tamsulosin 0.4 mg capsule 0.4 mg PO DAILY RF: 0 finasteride 5 mg tablet 5 mg PO DAILY RF: 0 Xarelto 20 mg tablet 20 mg PO DAILY RF: 0 Fiber (psyllium husk) 0.4 gram Capsule 0.4 g PO DAILY RF: 0 Discharge Orders: Discharge ED (Routine); Ordered 07/30/20 Ordered By: Alejo Davis Referrals: Nic Wang MD [Primary Care Provider] - Discharge Diet: Usual diet Discharge Activity: Limit activity as instructed Patient Instructions: Opioid Safety Activity Restrictions/Additional Instructions: Follow-up with Dr. Wang. Return to the emergency room if you have any worsening or changes symptoms Coding Level of Care Code ED Thai Masseur for Nola Olivares
--- NOTE | 2020-07-30 09:01 | CTR_ITS ---
PROCEDURE INFORMATION: Exam: CT Right Lower Extremity Without Contrast, Knee Exam date and time: 07/30/2020 9:15 AM Age: 85 years old Clinical indication: Pain; Knee; Right; Additional info: Pain, unable to bear weight TECHNIQUE: Imaging protocol: CT of the Right lower extremity without contrast was performed. Exam focused on the knee. Radiation optimization: All CT scans at this facility use at least one of these dose optimization techniques: automated exposure control; mA and/or kV adjustment per patient size (includes targeted exams where dose is matched to clinical indication); or iterative reconstruction. COMPARISON: CR (LOW EXM, ) 07/30/2020 8:43 AM RADIATION DOSE METRICS: Total DLP (mGy-cm): 314.07 FINDINGS: Bones/joints: There is a large joint effusion. There is a 4 cm Gregory's cyst. Prominent chronic degenerative joint disease is present with osteophyte formation, sclerosis and prominent medial joint space narrowing. There is chondrocalcinosis of the [place]. No fracture dislocation or other acute bone or joint abnormalities are seen. Soft tissues: Normal. Vasculature: There is prominent atherosclerotic calcification of the popliteal artery. CT/CT knee RT wo con* 40003 IMPRESSION: 1. Large joint effusion. 2. Prominent DJD. 3. No fracture seen. Radiation Dose CTDIVOL = (mGy): DLP = 314.07 (mGy-cm)
[2020-07-30 09:28] LABS: Basophils % 0.4 %; Eosinophils # 0.1 10^3/uL (0.0-0.8); Eosinophils % 0.9 %; Hematocrit 39.9 % (42.0-52.0); Hemoglobin 13.3 g/dL (11.7-16.6); Lymphocytes # 1.3 10^3/uL (0.8-4.8); Lymphocytes % 15.5 %; Mean Corpuscular HGB Conc 33.3 g/dL (30.0-36.0); Mean Corpuscular Hemoglobin 33.3 pg (28.0-34.0); Mean Corpuscular Volume 99.8 fL (80-94); Mean Platelet Volume 10.1 fL (7.4-10.4); Monocytes # 0.9 10^3/uL (0.2-0.9); Monocytes % 10.4 %; Neutrophils # 5.95 10^3/uL (1.8-7.7); Neutrophils % 72.4 %; Nucleated Red Blood Cells % 0 %; Platelet Count 143 10^3/cmm (130-400); Red Cell Distribution Width 12.9 % (12.1-15.1); White Blood Count 8.2 10^3/uL (4.0-10.0)
[2020-07-30 09:41] VITALS: RESP 16; O2SAT 98
[2020-07-30] MEDS: morphine 4 mg/mL SDV 1 mL IVP (09:41)
[2020-07-30] MEDS: tetanus-diphtheria tox (adult) 0.5 mL SDV IM (09:42)
[2020-07-30 09:43] LABS: Alanine Aminotransferase 26 U/L (0-41); Albumin Level 3.6 g/dL (3.5-5.2); Alkaline Phosphatase 72 IU/L (40-130); Aspartate Amino Transferase 12 U/L (0-40); Blood Urea Nitrogen 18 mg/dL (8-23); C Reactive Protein 101.8 mg/L (0.0-4.9); Calcium 8.7 mg/dL (8.5-10.5); Carbon Dioxide 24 mmol/L (22-29); Chloride 103 mmol/L (98-107); Creatine Phosphokinase 47 U/L (39-308); Globulin 2.9 g/dL (1.3-4.6); Glucose 124 mg/dL (65-115); Osmolality Calculated 291 mOsm/kg (285-295); Sodium 139 mmol/L (136-145); Total Bilirubin 1.1 mg/dL (0.15-1.2); Total Protein 6.5 g/dL (6.6-8.7)
[2020-07-30 10:02] LABS: Anion Gap 15.9 (5-19); Potassium 3.9 mmol/L (3.5-5.1)
[2020-07-30 10:58] LABS: Urine Appearance Clear (CLEAR); Urine Color Yellow (Yellow); pH Urine 5 (5-7)
[2020-07-30 10:59] LABS: Add Urine Culture? No; Add Urine Microscopic? YES; Bacteria Urine TRACE /hpf; Bilirubin Urine Neg (Negative); Blood Urine 2+ (Negative); Glucose Urine UA Trace (Normal); Ketones Urine Negative (Negative); Leukocyte Esterase Urine Negative (Negative); Nitrate Urine Negative (Negative); Protein Urine Neg (Negative); RBC Urine 0-4 /hpf (0-2); Specific Gravity, Urine 1.015 (1.005-1.030); Urobilinogen Urine Norm (Negative); WBC Urine RARE /hpf (0-5)
[2020-07-30 11:05] VITALS: BP 142/55; PULSE 63; RESP 18; O2SAT 95
--- NOTE | 2020-07-30 11:05 | PC.NURSE ---
patient stated no pain while lying down
[2020-07-30 12:06] VITALS: PULSE 75; RESP 16
== END 2020-07-30 12:07 | disposition home or self-care (01) ==
PROVIDERS: Emergency Provider Family Medicine; PCP Family Medicine
DX: M17.11 Unilateral primary osteoarthritis, right knee (principal); Z79.84 Long term (current) use of oral hypoglycemic drugs; I48.91 Unspecified atrial fibrillation; Z95.0 Presence of cardiac pacemaker; F17.210 Nicotine dependence, cigarettes, uncomplicated; Z23 Encounter for immunization; S80.212A Abrasion, left knee, initial encounter; W19.XXXA Unspecified fall, initial encounter
CPT/HCPCS: 71045; 73562; 73700; 80053; 81001; 82550; 85025; 86140; 87040; 90471; 90714; 96374; 96375; 99284; J2270; J2930

== ENCOUNTER 2020-09-12 15:21 | Outpatient (CLI) | payer MEDICARE, OTHER, SELFPAY ==
--- NOTE | 2020-09-12 15:45 | USCV_ITS ---
HidalgoMax russ Age: 85 Gender: M : 1935 Exam Date: 09/12/2020 15:45 Ordering Phys: Linda Kessler Technologist: Michelle Bartlett Exam Location: [facility] – [place] Indication: nonrheumatic aortic BP: / HR: 65 Rhythm: Sinus Technical Quality: Technically difficult study MEASUREMENTS (Male / Female) Normal Values 2D ECHO LV Diastolic Diameter PLAX 4.3 cm 4.2 - 5.9 / 3.9 - 5.3 cm LV Systolic Diameter PLAX 3.2 cm IVS Diastolic Thickness 1.9 cm 0.6 - 1.0 / 0.6 - 0.9 cm IVS Systolic Thickness 2.1 cm LVPW Diastolic Thickness 1.4 cm 0.6 - 1.0 / 0.6 - 0.9 cm LVPW Systolic Thickness 2.2 cm LVOT Diameter 1.9 cm LV Ejection Fraction 2D Teich 53.5 % LV Ejection Fraction MOD 2C 47.2 % LV Ejection Fraction 2C AL 48.1 % LA Diameter 4.0 cm LA Width 4.2 cm LA Height 3.7 cm RA Width 4.0 cm RA Height 4.1 cm Aorta at Sinotubular Diameter 2.0 cm M-MODE Aortic Annulus Diameter 3.4 cm LA Ao Ratio MM 1.5 MV E Point Septal Separation 0.6 cm DOPPLER AV Peak Velocity 195.0 cm/s LVOT Peak Velocity 59.0 cm/s AV Area Cont Eq vti 0.8 cm squared AV Area Cont Eq pk 0.9 cm squared MV Area PHT 3.1 cm squared Mitral E to A Ratio 0.6 MV E' Velocity 31.5 cm/s Mitral E to MV E' Ratio 7.9 Mitral E to LV E' Lateral Ratio 7.1 Mitral E to LV E' Septal Ratio 9.0 TR Peak Velocity 252.3 cm/s TR Peak Gradient 25.5 mmHg TV Peak E Velocity 70.0 cm/s Right Atrial Pressure 3.0 mmHg Pulmonary Artery Systolic Pressu 28.5 mmHg PV Peak Velocity 129.0 cm/s RV Acceleration Time 0.1 s RV Ejection Time 0.3 s RV AcT/ET 0.6 FINDINGS Left Ventricle Normal left ventricular cavity size. Normal left ventricular systolic function. No regional wall motion abnormalities. Left ventricular ejection fraction is estimated at 60 %. Grade II/IV diastolic dysfunction, moderately elevated filling pressures. Right Ventricle Normal right ventricular size. Catheter/pacemaker wire visualized in the right ventricle. Right Atrium Normal right atrial size. Catheter/pacemaker wire in the right atria Left Atrium The left atrium is normal in size. Mitral Valve Moderately thickened mitral valve. Severe mitral annular calcification. No mitral valve stenosis. No mitral valve regurgitation. Aortic Valve Severe aortic valve calcification. Severe aortic valve stenosis, mean gradient 9.4 mmHg, JAJA 0.78 cm squared. No aortic valve regurgitation. Tricuspid Valve Structurally normal tricuspid valve without significant stenosis or regurgitation. Pulmonary artery systolic pressure is normal. Pulmonic Valve Structurally normal pulmonic valve without significant stenosis. There is no pulmonic regurgitation. Pericardium Normal pericardium without effusion. Aorta Normal ascending aorta dimension. CONCLUSIONS 1-Normal left ventricular cavity size. Normal left ventricular systolic function. No regional wall motion abnormalities. Left ventricular ejection fraction is estimated at 60 %. Grade II/IV diastolic dysfunction, moderately elevated filling pressures. 2-Normal right ventricular size. Catheter/pacemaker wire visualized in the right ventricle. 3-Moderately thickened mitral valve. Severe mitral annular calcification. No mitral valve stenosis. No mitral valve regurgitation. 4-Severe aortic valve calcification. Severe aortic valve stenosis, mean gradient 9.4 mmHg, JAJA 0.78 cm squared. No aortic valve regurgitation. 5-There is no pericardial effusion. 6-Pulmonary artery systolic pressure is within normal limits. 7-Right atrial pressure is around 5 mm of mercury. 8-When compared to the prior echocardiogram dated 09/08/2019 there is worsening of aortic stenosis from aortic valve area of 1.3 cm squared to 0.78 cm2 now. There appeared to be discrepancy for aortic valve gradient. Please order HARINI for the further assessment. Lora Valencia MD (Electronically Signed) Final Date: 13 September 2020 18:38 S
== END 2020-09-12 15:22 | disposition home or self-care (01) ==
LOC: US 15:24
PROVIDERS: PCP Family Medicine; Visit Provider Nurse Practitioner Family
DX: I35.0 Nonrheumatic aortic (valve) stenosis (principal); I34.8 Other nonrheumatic mitral valve disorders
CPT/HCPCS: 93306

== ENCOUNTER → 2020-11-08 12:00 | Outpatient (BNVA) | payer MEDICARE, OTHER, SELFPAY | PROVIDERS: PCP Family Medicine; Referring Provider Internal Medicine Cardiovascular Disease; Visit Provider Internal Medicine Cardiovascular Disease | DX: Z01.818 Encounter for other preprocedural examination (principal); Z20.822 Contact with and (suspected) exposure to COVID-19 | CPT/HCPCS: 87635 ==

== ENCOUNTER 2020-11-14 10:42 | Day surgery (SDC) | payer MEDICARE, OTHER, SELFPAY ==
[2020-11-10 14:04] VITALS: BMI 22.4
--- NOTE | 2020-11-14 11:13 | USCV_ITS ---
Max Hidalgo Age: 85 Gender: M : 1935 Exam Date: 11/14/2020 11:59 Ordering Phys: Lora Valencia MD ([email or web address]) Technologist: Exam Location: [facility] – [place] Indication: CHF BP: / HR: Rhythm: Sinus Technical Quality: Very technically difficult study MEASUREMENTS (Male / Female) Normal Values Medications Patient given IV sedation by anesthesia service, for details please refer to the anesthesia report. Complications None. Proc. Components FINDINGS Left Ventricle Normal left ventricular cavity size. Low normal left ventricular systolic function. Left ventricular ejection fraction is estimated at 50 o 55 %. There appeared to be septal bounce with possible paced rhythm Right Ventricle The right ventricle is normal in size and function. Right Atrium The right atrium is normal in size. Left Atrium Mildly increased left atrial size. LA Appendage No thrombus visualized in the left atrial appendage. Normal velocity in the left atrial appendage. IA Septum Normal interatrial septum. Mitral Valve Moderately thickened mitral valve. Moderate mitral annular calcification. No mitral valve stenosis. Mild mitral valve regurgitation. Aortic Valve Severe aortic valve calcification. Moderate to severe aortic valve stenosis. Aortic valve area is 1.3 cm care by planimetry. Trace aortic valve regurgitation. Tricuspid Valve Structurally normal tricuspid valve without significant stenosis or regurgitation. Pulmonary artery systolic pressure is normal. Pulmonic Valve Structurally normal pulmonic valve without significant stenosis. There is no pulmonic regurgitation. Pericardium Normal pericardium without effusion. Aorta Plaque seen in the ascending aorta. CONCLUSIONS . 1-Normal left ventricular cavity size. Low normal left ventricular systolic function. Left ventricular ejection fraction is estimated at 50 o 55 %. There appeared to be septal bounce with possible paced rhythm. 2-Severe aortic valve calcification. Moderate to severe aortic valve stenosis. Aortic valve area is 1.3 cm care by planimetry. Trace aortic valve regurgitation. 3-Moderately thickened mitral valve. Moderate mitral annular calcification. No mitral valve stenosis. Mild mitral valve regurgitation. 4-No thrombus visualized in the left atrial appendage. Normal velocity in the left atrial appendage. 5-Plaque seen in the ascending aorta. 6-There is no pericardial effusion. 7-There are no prior echocardiogram studies to compare. Lora Valencia MD (Electronically Signed) Final Date: 14 November 2020 20:35 S
--- NOTE | 2020-11-14 11:13 | ECG_ITS ---
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 Measurements Intervals [place] Rate: 65 P: KS: QRS: -81 QRSD: 189 T: 88 QT: 456 QTc: 475 Interpretive Statements ELECTRONIC VENTRICULAR PACEMAKER ABNORMAL RHYTHM ECG Compared to ECG 10/11/2015 04:41:49 Atrial flutter no longer present Incomplete right bundle-branch block no longer present Myocardial infarct finding no longer present Electronically Signed On 11-14-2020 19:20:52 CDT by Marsha Burnett M.D. [id number]
[2020-11-14] MEDS: sodium chloride 0.9% 1,000 ML 30 ML IV (11:49)
[2020-11-14 11:51] VITALS: BP 145/85; PULSE 65; RESP 18; TEMP 36.6; O2SAT 97
[2020-11-14 11:51] LABS: Glucose Point of Care 112 mg/dL (70-110)
--- NOTE | 2020-11-14 12:04 | ANES.PREANE2 ---
Pre-Anesthetic Assessment Pre-Anesthetic Assessment: Height/Weight: Height 1.88 m Weight 79.379 kg Temp Pulse Resp BP Pulse Ox 97.9 F 65 18 145/85 97 11/14/20 11:51 11/14/20 11:51 11/14/20 11:51 11/14/20 11:51 11/14/20 11:51 Preop Diagnosis: aoric stenosis Proposed Procedure: Operation Date: 11/14/20 12:00 Proposed Procedures p HARINI(Not Applicable) - Lora Valencia MD Familial anesthetic complications: none Was Beta Adali taken within 24 hours: N/A Was Clonidine taken within 24 hours: N/A Last intake: Intake Last Liquid Date 11/13/20 Last Solid Date 11/13/20 Social: Social History: Tobacco (4-5 cigars per day) and No alcohol Exam: Pre-Anes Outpt Exam: alert, oriented x 3, clear to auscultation bilaterally and regular rate & rhythm Airway: Submandibular: WNL Cervical ROM: WNL MP: 1 Dentition: Full History/ROS: Other Pulmonary: Pulmonary: None reported CV/HEM: CV/HEM: Afib and Arrythmia Comments: pacemaker 5 year ago : : None reported Hepatic: Hepatic: None reported GI: GI: None reported Metabolic: Metabolic: DM and Hyperlipidemia Musc/skel: Musc/skel: Lower Back Pain and OA/DJD Neuropsych: Neuropsych: None reported Anesthetic Plan: Anesthesia: MAC Risk of > 500 ml blood loss (7ml/kg in children): No Meds/Allergies Current Medications: Current Medications Generic Name Dose Route Start Last Admin Trade Name Freq PRN Reason Stop Dose Admin Sodium Chloride 1,000 mls @ 30 ml s/hr 11/14/20 11:15 11/14/20 11:49 Sodium Chloride 0.9% IV 11/15/20 11:14 30 mls/hr .Q24H RILEY Administration PFSH Anesthesia PFSH: Medical History Aortic stenosis Atrial fibrillation History of pacemaker Social History Smoking and tobacco status: current every day smoker Data Anesthesia Other Labs: Laboratory Results - last 48 hr 11/14/20 11:47 POC Glucose 112 H Cardiac Studies: No Data to Display
--- NOTE | 2020-11-14 12:21 | W.PM.OPSUD ---
Surgery/Procedure H&P Update DATE OF PROCEDURE: November 14, 2020 DATE H&P PERFORMED: 09/06/20 H&P UPDATE INFORMATION: I have reviewed H&P completed within last 30 days and I have examined patient prior to procedure PREOP DIAGNOSIS: Sevre aoric stenosis area with discrepancy PLANNED PROCEDURE: Operation Date: 11/14/20 12:00 Proposed Procedures p HARINI(Not Applicable) - Lora Valencia MD AIRWAY EVAL/ANESTHESIA PLAN: ASA II, Risks, benefits & alternatives of sedation and/or procedure discussed and Patient agrees to continue as planned ADDITIONAL INFORMATION: Reason for transesophageal echocardiogram aortic valve area with discrepancy by area patient has severe aortic stenosis by gradient patient has only mild aortic stenosis ejection fraction remained 60. It is the reason we have asked for the transesophageal echocardiogram. Patient has been explained all risk benefit and already for the procedure he would like to proceed with it
[2020-11-14 12:48] VITALS: BP 104/60; PULSE 65; RESP 16; TEMP 36.2; O2SAT 98
--- NOTE | 2020-11-14 12:55 | ANE.PACU2 ---
Inpatient post-anesthesia follow up: Airway intact: Yes Vital signs: Temperature 97.9 F Pulse Rate 65 Respiratory Rate 18 Blood Pressure 145/85 Pulse Oximetry 97 Oxygen Delivery Me thod Room Air Oxygen Flow Rate Fraction of Inspir ed Oxygen Hydration adequate: Yes Nausea and vomiting: No Pain level: 1 Mental status: Baseline
[2020-11-14 13:03] VITALS: BP 119/76; PULSE 65; RESP 18; O2SAT 97
--- NOTE | 2020-11-28 20:58 | W.PM.OPSFHP ---
Same Day Surgery H&P Indication for Procedure/HPI DATE OF PROCEDURE: November 14, 2020 CHIEF COMPLAINT/INDICATIONFOR SURGICAL PROCEDURE: Worsening of shortness of breath,, discrepancy between gradient and size of the aortic stenosis, moderate to severe aortic stenosis PREOP DIAGNOSIS: Sevre aoric stenosis area with discrepancy PLANNED PROCEDRUE: Operation Date: 11/14/20 12:00 Proposed Procedures p HARINI(Not Applicable) - Lora Valencia MD 85-year-old male who is here for a transesophageal echocardiogram patient has been worsening with shortness of breath there has been discrepancy between aortic valve area and gradient across the aortic valve as aortic valve gradient was less than moderate while aortic valve area was moderate to severe on transthoracic echo. Since patient continues to have shortness of breath we would like to challenge through different modality. We will proceed with transesophageal echocardiogram to assess aortic valve area with planimetry. Patient has been explained all risk benefit and alternative for the procedure he would like to proceed with it. Medications/Allergies* Home Medications Medication Instructions Recorded Confirmed Type Xarelto 20 mg PO DAILY 05/13/19 11/14/20 History atorvastatin 20 mg PO DAILY 05/13/19 11/14/20 History finasteride 5 mg PO DAILY 05/13/19 11/14/20 History glipizide 10 mg PO DAILY 05/13/19 11/14/20 History prednisone 5 mg PO BID 05/13/19 11/14/20 History tamsulosin 0.4 mg PO DAILY 05/13/19 11/14/20 History terazosin 5 mg PO DAILY 05/13/19 11/14/20 History metformin 1,000 mg tablet 1,000 mg PO DAILY 02/09/20 11/14/20 History Allergies/Adverse Reactions Allergy/AdvReac Type Severity Reaction Status Date / Time Penicillins Allergy ALGY-Rash Verified 08/10/20 13:04 Pertinent History/Comorbid Conditions* Medical History (Updated 08/10/20 @ 13:03 by MERLENE Mortensen) Aortic stenosis Atrial fibrillation History of pacemaker Social History Smoking and tobacco status: current every day smoker Pertinent Exam Findings alert, oriented x 3, clear to auscultation bilaterally and regular rate & rhythm Related Problem List Diagnoses (1) Atrial fibrillation: Qualifiers: Atrial fibrillation type: persistent (not longstanding) Qualified Code(s): I48.19 - Other persistent atrial fibrillation (2) History of pacemaker: (3) Aortic stenosis: Qualifiers: Cardiac valve disease etiology: etiology unspecified Qualified Code(s): I35.0 - Nonrheumatic aortic (valve) stenosis Recommendations Surgery/Procedure today Coding Level of Care Code Acute Manager Intensive Care Unit for [facility] Fwd Diagnoses Atrial fibrillation I48.19 Atrial fibrillation type: persistent (not longstanding) History of pacemaker Z95.0 Aortic stenosis I35.0 Cardiac valve disease etiology: etiology unspecified
== END 2020-11-14 13:20 | disposition home or self-care (01) ==
PROVIDERS: PCP Family Medicine; Visit Provider Internal Medicine Cardiovascular Disease
PROC: (CPT 93312; principal; 2020-11-14 12:00)
DX: I35.0 Nonrheumatic aortic (valve) stenosis (principal); I70.0 Atherosclerosis of aorta; I05.9 Rheumatic mitral valve disease, unspecified; I48.91 Unspecified atrial fibrillation; E11.9 Type 2 diabetes mellitus without complications; E78.9 Disorder of lipoprotein metabolism, unspecified; M19.90 Unspecified osteoarthritis, unspecified site; F17.210 Nicotine dependence, cigarettes, uncomplicated
CPT/HCPCS: 36416; 82962; 93005; 93312; 93320; 93325; 96360; J2370; J2704; J7030

== ENCOUNTER → 2020-12-28 11:33 | Outpatient (BNVA) | payer MEDICARE, OTHER, SELFPAY | PROVIDERS: PCP Family Medicine; Visit Provider Internal Medicine Cardiovascular Disease | DX: Z20.822 Contact with and (suspected) exposure to COVID-19 (principal); I48.19 Other persistent atrial fibrillation | CPT/HCPCS: 87635 ==

== ENCOUNTER 2021-01-02 08:07 | Day surgery (SDC) | payer MEDICARE, OTHER, SELFPAY ==
[2020-12-30 12:54] VITALS: BMI 21.9
[2021-01-02 08:19] VITALS: BP 146/81; PULSE 65; RESP 18; TEMP 36.4; O2SAT 97
--- NOTE | 2021-01-02 08:51 | ANES.PREANE2 ---
Pre-Anesthetic Assessment Pre-Anesthetic Assessment: Height/Weight: Height 1.88 m Weight 77.564 kg Temp Pulse Resp BP Pulse Ox 97.6 F 65 18 146/81 97 01/02/21 08:19 01/02/21 08:19 01/02/21 08:19 01/02/21 08:19 01/02/21 08:19 Preop Diagnosis: Pacemaker end of service Proposed Procedure: Operation Date: 01/02/21 09:40 Proposed Procedures p Pacemaker Exchange(Not Applicable) - Fred Guy MD Familial anesthetic complications: none Was Beta Adali taken within 24 hours: N/A Was Clonidine taken within 24 hours: N/A Last intake: > 8 hrs Social: Social History: Tobacco and No alcohol Exam: Pre-Anes Outpt Exam: alert, oriented x 3, clear to auscultation bilaterally and regular rate & rhythm Airway: MP: 1 Dentition: Full CV/HEM: CV/HEM: Afib (holding xarelto) and HTN Comments: Moderate , Sick sinus syndrome, pacemaker Metabolic: Metabolic: DM and Hyperlipidemia Anesthetic Plan: ASA status: 4 Anesthesia: MAC Risk of > 500 ml blood loss (7ml/kg in children): No PFSH Anesthesia PFSH: Medical History Aortic stenosis Atrial fibrillation History of pacemaker Social History Smoking and tobacco status: current every day smoker Data Anesthesia CBC & Chem 7: 01/02/21 08:38 01/02/21 08:38 Cardiac Studies: No Data to Display
[2021-01-02] MEDS: sodium chloride 0.9% 1,000 ML 30 ML IV (08:53)
[2021-01-02 08:56] LABS: Basophils % 0.5 %; Eosinophils # 0.1 10^3/uL (0.0-0.8); Hematocrit 45.7 % (42.0-52.0); Hemoglobin 15.1 g/dL (11.7-16.6); Lymphocytes # 1.6 10^3/uL (0.8-4.8); Mean Corpuscular Hemoglobin 33.3 pg (28.0-34.0); Mean Corpuscular Volume 100.7 fl (80-94); Monocytes # 0.5 10^3/uL (0.2-0.9); Monocytes % 8.8 %; Neutrophils # 3.63 10^3/uL (1.8-7.7); Neutrophils % 61.4 %; Nucleated Red Blood Cells % 0 %; Platelet Count 157 10^3/cmm (130-400); Red Blood Count 4.54 10^6/uL (4.1-5.3); Red Cell Distribution Width 13.2 % (12.1-15.1); White Blood Count 5.9 10^3/uL (4.0-10.0)
[2021-01-02 08:58] LABS: Glucose Point of Care 114 mg/dL (70-110)
--- NOTE | 2021-01-02 09:04 | W.PM.OPSUD ---
Surgery/Procedure H&P Update DATE OF PROCEDURE: January 02, 2021 DATE H&P PERFORMED: 12/26/20 H&P UPDATE INFORMATION: I have reviewed H&P completed within last 30 days, I have examined patient prior to procedure and No changes to prior documentation PREOP DIAGNOSIS: Pacemaker end of service PLANNED PROCEDURE: Operation Date: 01/02/21 09:40 Proposed Procedures p Pacemaker Exchange(Not Applicable) - Fred Guy MD
[2021-01-02 09:10] LABS: INR 1.04 (0.8-1.2)
[2021-01-02 09:17] LABS: Anion Gap 13.9 (5-19); Blood Urea Nitrogen 16 mg/dL (8-23); Calcium 9.4 mg/dL (8.5-10.5); Carbon Dioxide 26 mmol/L (22-29); Chloride 105 mmol/L (98-107); Glucose 116 mg/dL (65-115); Osmolality Calculated 294 mOsm/kg (285-295); Potassium 3.9 mmol/L (3.5-5.1); Sodium 141 mmol/L (136-145)
[2021-01-02] MEDS: vancomycin 1,500 MG/300 ML PIGGYBACK 200 MG IV (09:25)
[2021-01-02] MEDS: vancomycin 1,000 MG SDV 1000 MG IRRIGATION (09:48)
[2021-01-02] MEDS: lidocaine 1% INJ 20 mL SUBCUT (09:48)
--- NOTE | 2021-01-02 10:19 | P.OP_ITS ---
Operative Report Date of procedure: January 02, 2021 Pre-op Diagnosis: Pacemaker end of service Post-op diagnosis: same Procedure Done: Pacemaker generator exchange Implants: Medtronic pacemaker Pathology: none sent Surgeon: Fred Guy Anesthesia: MAC and Local Complications: None Condition: stable Disposition: same day Brief History: Mr. Dhillon is an 85-year-old gentleman with a single lead VVI pacemaker in place for the past 5 years. He has chronic atrial fibrillation. Details the risk of procedure were carefully and frankly discussed. Increased risk for wound healing or infection related to his chronic steroid and anticoagulation use was also reviewed. Proper consents have been reviewed and signed. Procedure: Patient was appropriately positioned and sterilely prepped and draped. IV consicious sedation was given with anesthesia monitoring. 1% lidocaine was infiltrated through the prior insertion incision site. # 15 scalpel blade was used to incise the skin down to subcutaneous layer. Subsequently, using sharp and blunt dissection the pseudocapsule to the old generator was reached and opened with a scalpel blade. This area was then enhanced utilizing Metzenbaum scissors with care taken not to injure the pacing leads. Once the pocket was adequate opened, hemostats were utilized to deliver the old generator. Set screws were released and the lead was removed and inserted properly into the new generator with set screws then secured. The old generator was removed from the field. The incision was irrigated with antibiotic solution. Hemostasis was confirmed. The new generator was placed back into the old subcutaneous pocket. The wound was then closed in 2 layers of 3-0 Vicryl suture. Skin was closed in a subcuticular manner with 4-0 undyed Vicryl suture. A 2 layer pressure dressing was then applied. The entire system was interrogated and appropriate parameters obtained. Patient tolerated procedure well and was taken to the recovery room in stable condition. I did outreach counselor with his at the completion of the procedure. He will follow up in 1 week and [facility]. New Medtronic generator is model [id number]. Serial Number: [id number] System had a RV sensing of 3.0 with an impedance of 118. Threshold was 1 V
[2021-01-02 10:22] VITALS: BP 100/41; PULSE 60; RESP 16; TEMP 36.3; O2SAT 98
[2021-01-02 10:25] VITALS: BP 85/43; PULSE 60; RESP 18; O2SAT 96
[2021-01-02 10:30] VITALS: BP 88/43; PULSE 60; RESP 17; O2SAT 97
[2021-01-02 10:35] VITALS: BP 103/71; PULSE 60; RESP 17; TEMP 36.5; O2SAT 97
[2021-01-02 10:43] VITALS: BP 132/63; PULSE 61; RESP 18; TEMP 36.3; O2SAT 96
--- NOTE | 2021-01-02 18:53 | ANE.PACU2 ---
Inpatient post-anesthesia follow up: Airway intact: Yes Vital signs: Temperature 97.4 F Pulse Rate 61 Respiratory Rate 18 Blood Pressure 132/63 Pulse Oximetry 96 Oxygen Delivery Me thod Room Air Oxygen Flow Rate Fraction of Inspir ed Oxygen Hydration adequate: Yes Nausea and vomiting: No Pain level: 2 Mental status: Baseline
== END 2021-01-02 11:20 | disposition home or self-care (01) ==
PROVIDERS: PCP Family Medicine; Visit Provider Thoracic Surgery (Cardiothoracic Vascular Surgery)
PROC: 0JPT0PZ Removal of Cardiac Rhythm Related Device from Trunk Subcutaneous Tissue and Fascia, Open Approach (ICD-10-PCS; CPT 33228; principal; 2021-01-02 09:40)
DX: Z45.018 Encounter for adjustment and management of other part of cardiac pacemaker (principal); I48.20 Chronic atrial fibrillation, unspecified; I35.0 Nonrheumatic aortic (valve) stenosis; Z79.01 Long term (current) use of anticoagulants; Z88.0 Allergy status to penicillin; E11.9 Type 2 diabetes mellitus without complications; R42 Dizziness and giddiness
CPT/HCPCS: 33228; 36415; 36416; 80048; 82962; 85025; 85610; C1786; J2370; J2704; J3010; J3370; J7030

== ENCOUNTER 2021-07-20 10:35 | Outpatient (CLI) | payer MEDICARE, OTHER, SELFPAY | END 2021-07-20 10:36 | disposition home or self-care (01) | LOC: RAD 15:05 → RT 15:06 | PROVIDERS: PCP Family Medicine; Visit Provider Internal Medicine Cardiovascular Disease | DX: I48.91 Unspecified atrial fibrillation (principal); I35.0 Nonrheumatic aortic (valve) stenosis | CPT/HCPCS: 93005 ==

== ENCOUNTER → 2021-10-18 11:30 | Outpatient (BNVA) | payer MEDICARE, OTHER, SELFPAY | PROVIDERS: PCP Family Medicine; Visit Provider Internal Medicine Cardiovascular Disease | DX: I48.19 Other persistent atrial fibrillation (principal); Z95.0 Presence of cardiac pacemaker; Z95.3 Presence of xenogenic heart valve; I11.0 Hypertensive heart disease with heart failure; I50.30 Unspecified diastolic (congestive) heart failure; F17.200 Nicotine dependence, unspecified, uncomplicated | CPT/HCPCS: 93005; 93279; 96372; 99214 ==

== ENCOUNTER 2021-10-19 14:55 | Outpatient (CLI) | payer MEDICARE, OTHER, SELFPAY ==
[2021-10-19 15:52] LABS: Anion Gap 16.3 (5-19); Blood Urea Nitrogen 26 mg/dL (8-23); Calcium 9.2 mg/dL (8.5-10.5); Carbon Dioxide 25 mmol/L (22-29); Chloride 99 mmol/L (98-107); Glucose 234 mg/dL (65-115); NT Pro B Type Natriuretic Pept 1211 pg/mL (0-450); Osmolality Calculated 294 mOsm/kg (285-295); Potassium 4.3 mmol/L (3.5-5.1); Sodium 136 mmol/L (136-145)
== END 2021-10-19 14:56 | disposition home or self-care (01) ==
LOC: LAB 14:59
PROVIDERS: PCP Family Medicine; Visit Provider Internal Medicine Cardiovascular Disease
DX: R06.02 Shortness of breath (principal)
CPT/HCPCS: 80048; 83880

== ENCOUNTER → 2022-02-16 11:07 | Outpatient (BNVA) | payer MEDICARE, OTHER, SELFPAY | PROVIDERS: PCP Family Medicine; Visit Provider Internal Medicine Cardiovascular Disease | DX: Z45.010 Encounter for checking and testing of cardiac pacemaker pulse generator [battery] (principal) | CPT/HCPCS: 93279 ==

== ENCOUNTER → 2022-03-12 15:41 | Outpatient (BNVA) | payer MEDICARE, OTHER, SELFPAY | PROVIDERS: PCP Family Medicine; Visit Provider Nurse Practitioner Family | DX: I11.0 Hypertensive heart disease with heart failure (principal); I50.30 Unspecified diastolic (congestive) heart failure; R53.81 Other malaise; Z95.3 Presence of xenogenic heart valve; I48.19 Other persistent atrial fibrillation; Z95.0 Presence of cardiac pacemaker; F17.200 Nicotine dependence, unspecified, uncomplicated | CPT/HCPCS: 99214 ==

== ENCOUNTER → 2022-07-18 14:33 | Outpatient (BNVA) | payer MEDICARE, OTHER, SELFPAY | PROVIDERS: PCP Family Medicine; Visit Provider Otolaryngology | DX: H61.22 Impacted cerumen, left ear (principal) | CPT/HCPCS: 69210; 99203 ==

== ENCOUNTER 2022-08-31 11:00 | Oncology outpatient (recurring) (ONCR) | payer MEDICARE, OTHER, SELFPAY ==
[2022-08-21 15:20] VITALS: BP 126/67; PULSE 60; RESP 18; TEMP 35.7; O2SAT 100
[2022-08-21] MEDS: sodium chloride 0.9% 250 ML 75 ML IV (15:26)
[2022-08-21] MEDS: iron sucrose 200 MG in sodium chloride 0.9% (100 ml) 100 ML 220 MG IV (15:29)
[2022-08-21 16:30] VITALS: BP 138/78; PULSE 62; RESP 18; TEMP 35.9; O2SAT 98
[2022-08-23 15:20] VITALS: BP 130/66; PULSE 66; RESP 16; TEMP 36.3; O2SAT 97
[2022-08-23] MEDS: sodium chloride 0.9% 250 ML 75 ML IV (15:32)
[2022-08-23] MEDS: iron sucrose 200 MG in sodium chloride 0.9% (100 ml) 100 ML 220 MG IV (15:32)
[2022-08-23 16:30] VITALS: BP 135/67; PULSE 61; RESP 16; TEMP 36.8; O2SAT 99
[2022-08-27 15:15] VITALS: BP 138/64; PULSE 60; RESP 18; TEMP 36.3; O2SAT 95
[2022-08-27] MEDS: iron sucrose 200 MG in sodium chloride 0.9% (100 ml) 100 ML 220 MG IV (15:49)
[2022-08-27] MEDS: sodium chloride 0.9% 250 ML 75 ML IV (15:51)
[2022-08-27 16:30] VITALS: BP 130/59; PULSE 60; RESP 16; TEMP 36.7; O2SAT 95
[2022-08-29 15:11] VITALS: BP 127/66; PULSE 69; RESP 16; TEMP 35.8; O2SAT 98
[2022-08-29] MEDS: iron sucrose 200 MG in sodium chloride 0.9% (100 ml) 100 ML 220 MG IV (15:23)
[2022-08-29 16:00] VITALS: BP 124/63; PULSE 60; RESP 16; TEMP 36.6; O2SAT 96
[2022-08-31] MEDS: iron sucrose 200 MG in sodium chloride 0.9% (100 ml) 100 ML 220 MG IV (11:46)
[2022-08-31 12:29] VITALS: BP 146/71; PULSE 60; RESP 16; TEMP 36.2; O2SAT 99
== END 2022-08-31 23:59 | disposition home or self-care (01) ==
PROVIDERS: PCP Family Medicine; Visit Provider Internal Medicine Medical Oncology
DX: D50.8 Other iron deficiency anemias (principal)
CPT/HCPCS: 96365; J1756; J7050

== ENCOUNTER → 2022-09-24 15:37 | Outpatient (BNVA) | payer MEDICARE, OTHER, SELFPAY | PROVIDERS: PCP Family Medicine; Visit Provider Internal Medicine Cardiovascular Disease | DX: I48.19 Other persistent atrial fibrillation (principal); Z95.3 Presence of xenogenic heart valve; I11.0 Hypertensive heart disease with heart failure; I50.30 Unspecified diastolic (congestive) heart failure; R60.0 Localized edema; Z95.0 Presence of cardiac pacemaker; F17.200 Nicotine dependence, unspecified, uncomplicated | CPT/HCPCS: 80048; 83880; 99214 ==

== ENCOUNTER 2023-01-15 08:55 | Inpatient (IN) | payer MEDICARE, OTHER, SELFPAY ==
[2023-01-15] VITALS (15 sets, daily range): BP systolic 110–155; BP diastolic 54–76; PULSE 60–87; RESP 14–24; TEMP 36.3–36.8; O2SAT 95–100; BMI 20.5
--- NOTE | 2023-01-15 09:08 | XR_ITS ---
WS: [id number] Exam: XR lumbar spine 2-3V* [id number] Date/Time of Exam: 01/15/2023 9:10 AM Reason For Exam: fall No acute fracture or dislocation. Degenerative disc changes and spondylosis at all levels. Posterior elements are intact. There is straightening of the lumbar spine and slight dextroscoliosis. Dense aor toiliac atherosclerosis. Nonspecific RIGHT and LEFT upper abdominal calcifications. Laminated ovoid 2 .5 cm calcification in the RIGHT pelvis that may represent a bladder calculus. IMPRESSION: 1. No fracture or malalignment. 2. Moderately advanced degenerative changes, straightening. 3. Additional nonurgent minor findings.
--- NOTE | 2023-01-15 09:08 | XR_ITS ---
WS: [id number] Exam: XR chest 1V portable [id number] Date/Time of Exam: 01/15/2023 9:10 AM Reason For Exam: weakness Comparison 07/30/2020. There is a groundglass infiltrate in the RIGHT lower lobe suspicious for pneumonia. Remaining lung fi elds are clear. No pneumothorax. No pleural effusion identified. Heart size is within normal limits. Signs of previous cardiac valve replacement. An ICD seen over the LEFT chest. Surgical clips along th e RIGHT axilla. Bony structures are intact. IMPRESSION: 1. Groundglass infiltrate in the RIGHT lower lobe suspicious for pneumonia.
--- NOTE | 2023-01-15 09:08 | ECG_ITS ---
[facility] Test Date: 2023-01-15 Pat Name: Emmanuel Hidalgo Department: Room: Gender: Male Newspaper Subscription Solicitor: : [id number] Requested By: Liat Pitts Order Number: [id number] Lisa MD: Tg Mcgarry M.D. Measurements Intervals [place] Rate: 72 P: 0 DE: 0 QRS: -50 QRSD: 119 T: 23 QT: 410 QTc: 450 Interpretive Statements ATRIAL FIBRILLATION INCOMPLETE RIGHT BUNDLE BRANCH BLOCK [90+ ms QRS DURATION, TERMINAL R IN V1/V2, 40+ ms S IN I/aVL/V4/V5/V6] LEFT ANTERIOR FASCICULAR BLOCK [QRS AXIS <= -45, QR IN I, RS IN II] NONSPECIFIC ST & T-WAVE ABNORMALITY Compared to ECG 11/14/2020 11:59:38 Incomplete right bundle-branch block now present Left anterior fascicular block now present T-wave abnormality now present Ventricular-paced complex(es) or rhythm no longer present Electronically Signed On 01-15-2023 23:16:40 VIRTUAL OFFICE ASSISTANT by Tg Mcgarry M.D. [email or web address]
--- NOTE | 2023-01-15 09:14 | W.ED.WEAKNES ---
Documented by User: ESTEBAN Cornell 01/15/23 12:50 HPI - Weakness General: Chief complaint: Weakness Stated complaint: Weakness Time Seen by Provider: 01/15/23 08:59 Source: patient, family and EMS Mode of arrival: EMS Limitations: no limitations History of Present Illness: Patient is a nice 87-year-old male with a history of atrial fibrillation on anticoagulation, pacemaker present (placed due to sick sinus syndrome with atrial fibrillation), status post TAVR, diastolic heart failure, melanoma currently on oral chemotherapy, chronic anemia (per ), and HTN here via EMS along with his for evaluation of weakness. states patient has been incredibly weak over the past week or so. She states there has been multiple occasions where he has fallen or almost fallen secondary to the weakness. Patient states he has not had any episodes of chest pain, shortness of breath, difficulty breathing, lightheadedness, or dizziness. He has not had any syncopal episodes. He states he will be up and moving/walking when he feels like he is going to go down so will often slowly lower himself to the ground. He states there have been a few occasions where he has actually fallen and then been too weak to get up on his own. Patient has sustained minor injuries related to the falls including abrasions. He does complain of some mild lower back pain at the time of my examination that states started after one of the falls. Last echo study below: 11/14/20 CV. echo transesophageal ?1-Normal left ventricular cavity size.? Low normal left ?ventricular systolic function. Left ventricular ejection ?fraction is estimated at 50 o 55 %.? There appeared to be septal bounce with possible paced rhythm. ?2-Severe aortic valve calcification.? Moderate to severe aortic ?valve stenosis.? Aortic valve area is 1.3 cm care by planimetry.? Trace aortic valve regurgitation. ?3-Moderately thickened mitral valve. Moderate mitral annular ?calcification. No mitral valve stenosis. Mild mitral valve regurgitation. ?4-No thrombus visualized in the left atrial appendage.? Normal ?velocity in the left atrial appendage. ?5-Plaque seen in the ascending aorta. ?6-There is no pericardial effusion. ?7-There are no prior echocardiogram studies to compare MD Complaint: generalized weakness Onset (ago): day(s) Duration: constant Location: generalized Migration: none Severity: moderate Exacerbating factors: other (walking) Associated symptoms: Reports no associated symptoms; Denies chest pain, chills, confusion, dysuria, fever(s), headache(s), nausea, syncope or vomiting Review of Systems Const: Reports: fatigue and other (generalized weakness); Denies: fever(s), chills or body aches Eyes: Denies: change in vision or blurry vision Card: Denies: chest pain, palpitations, irregular heart rhythm, edema, swelling of feet/ankles, lightheadedness, syncope, pre-syncope, dyspnea on exertion, orthopnea, leg pain with exertion or acrocyanosis Resp: Denies: dyspnea, productive cough, non-productive cough, pain on inspiration or hemoptysis GI: Denies: abdominal pain, nausea, vomiting, heartburn or diarrhea : Denies: flank pain, difficulty urinating or dysuria Musc: Reports: back pain; Denies: neck pain, extremity pain, extremity swelling or joint pain Skin/Breast: Reports: other (abrasions/ecchymosis from falls); Denies: rash Neuro: Reports: difficulty walking; Denies: headache(s), numbness in extremities, weakness in extremities, sensory changes, dizziness, confusion, behavioral changes or seizure-like activity PFSH ED PFSH: Medical History (Updated 01/16/23 @ 06:07 by Alejo Davis DO) Aortic stenosis s/p TAVR Atrial fibrillation Benign prostate hyperplasia Chronic anticoagulation xarelto for afib Chronic dyspnea with exertion Chronic fatigue Hearing loss, bilateral hearing aids History of echocardiogram 11/22 EF 50-55%, aortic valve area 1.3cm, 2022 in [place] valve function okay History of melanoma on oral chemotherapy Hx of type 2 diabetes mellitus Hyperlipidemia Hypertension Kidney stones Surgical History (Updated 01/15/23 @ 13:13 by Patricia Oneal MD) History of cholecystectomy History of eye surgery History of knee joint replacement History of pacemaker (10/2015) Hx aflutter with slow ventricular response, placed in 2015, [employer], 01/[address] Jain History of tonsillectomy and adenoidectomy History of transcatheter aortic valve replacement (TAVR) Hx of appendectomy Family History Father CAD (coronary artery disease) Diabetes Mother Cancer Stroke Brother Diabetes Lung disease Cancer Brother Diabetes Family/Other Suicide Denies family history of Clotting disorder Dementia Chronic kidney disease (CKD) Anesthesia complication Bleeding disorder Social History Smoking and tobacco/nicotine status: current every day tobacco/nicotine user Alcohol intake: never Substance/Drug Use: never Physical Exam Const: COMMON NORMALS: no acute distress, patient oriented x3, no limitations, alert and well nourished GENERAL APPEARANCE: cooperative and ill appearing (chronically) NUTRITIONAL APPEARANCE: thin ORIENTATION/CONSCIOUSNESS: Yes awake, Yes oriented to person, Yes oriented to place and Yes oriented to time OTHER: slightly pale appearing HENMT: COMMON NORMALS: normocephalic and atraumatic HEAD & SCALP: normal to inspection, normocephalic and atraumatic Eye: GENERAL EYE: appearance normal, both eyes and all related structures Neck/C-Spine: COMMON NORMALS: full ROM, no lymphadenopathy, supple, no meningeal signs, no JVD and No carotid bruits Chest: COMMONS NORMALS: normal inspection of the chest Resp: COMMON NORMALS: normal respiratory effort and clear to auscultation bilaterally AUSCULTATION: clear to auscultation bilaterally Cardio: COMMON NORMALS: no JVD and regular rate RATE: regular rate RHYTHM: abnormal rhythm irregularly irregular GI: COMMON NORMALS: Normal to inspection, nondistended, normoactive bowel sounds present, Soft to palpation, non-tender, No hepatosplenomegaly present and no masses PALPATION: Yes Soft to palpation and Yes No hepatosplenomegaly present RECTAL EXAM: Yes heme negative stool : COMMON NORMALS: Yes no CVA tenderness BLADDER/KIDNEY EXAM: Yes no CVA tenderness Back/Pelvis: COMMON NORMALS: no CVA tenderness and thoracic and lumbar spine normal to inspection LUMBAR SPINE/LOWER BACK: Yes lumbar spinal tenderness, No paraspinal muscle tenderness and No paraspinal muscle spasm PELVIS: Yes buttocks normal and No sciatic notch tenderness SACRUM: no tenderness COCCYX: no tenderness Extremity: COMMON NORMALS: normal to inspection, full ROM, capillary refill normal and no calf tenderness NARRATIVE EXTREMITY EXAM: mild symmetrical LE edema GENERAL: Yes normal exam except as noted Neuro: SRINIVASA COMA SCALE: document GCS findings Srinivasa coma scale eye opening: Spontaneous [place] coma scale verbal response: Orientated Srinivasa coma scale motor response: Obey commands Srinivasa coma scale total score: 15 COMMON NORMALS: patient oriented x3, moves all extremities, no focal motor deficits and no sensory deficits noted SENSORIUM/ORIENTATION: Yes alert, Yes oriented to person, Yes oriented to place and Yes oriented to time MENINGEAL SIGNS: Yes no meningeal signs Skin: COMMON NORMALS: no rashes or lesions noted NARRATIVE SKIN EXAM: scattered ecchymosis/abrasions from fall GENERAL SKIN EXAM: no rashes or lesions noted Course Vital Signs: Vital signs: Vital Signs Temperature 98.4 F 01/16/23 04:00 Pulse Rate 60 01/16/23 04:00 Respiratory Rate 18 01/16/23 04:00 Blood Pressure 108/59 01/16/23 04:00 Pulse Oximetry 94 01/16/23 04:00 Oxygen Delivery Me thod Room Air 01/16/23 04:00 MDM - Weakness Medical Decision Making Patient is an 87-year-old male with an extensive past medical history here along with his for concerns of weakness over the past week. Patient has had multiple falls related to the weakness. He arrives with stable vital signs. Blood work showing chronic anemia. His hemoglobin today is 8.5. Previous hemoglobins were obtained from his oncologist at [facility]. In November of this year hemoglobin was 9.5. At last check on December 14 it was 9.2. Hemoccult today negative. Chemistry showing hyponatremia at 126. He has a critically high trop at 105. Patient denies chest pain, shortness of breath, difficulty breathing. He has not had any episodes of chest pain over the past week. Patient's delta troponin is -0.2. BNP is elevated at 9200. He clinically does not appear fluid overloaded. CXR is normal. Pacemaker was interrogated. Appears to be functioning properly. UA is currently pending. Spoke with Dr. Davis who agrees with decision to admit. Lab Data 01/16/23 04:25 01/16/23 04:25 Laboratory Results WBC 2.85 10^3/uL (3.29-11.43) L 01/15/23 08:28 RBC 2.75 10^6/uL (3.85-5.65) L 01/15/23 08:28 Hgb 8.50 g/dL (11.27-16.99) L 01/15/23 08:28 Hct 25.0 % (37-53) L 01/15/23 08:28 MCV 90.9 fl (82-101) 01/15/23 08:28 MCH 30.9 pg (27-33) 01/15/23 08: MCHC 34.0 g/dL (30-55) 01/15/23 08: RDW 14.6 % (12.1-15.1) 01/15/23 08:28 Plt Count 177 10^3/cmm (157-399) 01/15/23 08:28 MPV 9.1 fL (7.4-10.4) 01/15/23 08:28 Neut % (Auto) 69.8 % 01/15/23 08:28 Lymph % (Auto) 18.6 % 01/15/23 08:28 [place] % (Auto) 8.8 % 01/15/23 08:28 Eos % (Auto) 1.4 % 01/15/23 08:28 Baso % (Auto) 0.7 % 01/15/23 08:28 Neut # (Auto) 1.99 10^3/uL (1.8-7.7) 01/15/23 08:28 Lymph # (Auto) 0.5 10^3/uL (0.8-4.8) L 01/15/23 08:28 [place] # (Auto) 0.3 10^3/uL (0.2-0.9) 01/15/23 08:28 Eos # (Auto) 0.0 10^3/uL (0.0-0.8) 01/15/23 08:28 Baso # (Auto) 0.0 10^3/uL (0.0-0.1) 01/15/23 08:28 Nucleated RBC % (auto) 0 % 01/15/23 08: Nucleated RBCs # 0.0 /100WBC 01/15/23 08:28 Sodium 126 mmol/L (136-145) L 01/15/23 08:28 Potassium 3.9 mmol/L (3.5-5.1) 01/15/23 08:28 Chloride 97 mmol/L (98-107) L 01/15/23 08:28 Carbon Dioxide 19 mmol/L (22-29) L 01/15/23 08:28 Anion Gap 13.9 (5-19) 01/15/23 08:28 BUN 19 mg/dL (8-23) 01/15/23 08:28 Creatinine 0.9 mg/dL (0.7-1.2) 01/15/23 08:28 GFR Calculation Not Reportable 01/15/23 08:28 Glucose 121 mg/dL (65-115) H 01/15/23 08:28 Calculated Osmolality 266 mOsm/kg (285-295) L 01/15/23 08:28 Calcium 8.1 mg/dL (8.5-10.5) L 01/15/23 08:28 Total Bilirubin 0.3 mg/dL (0.15-1.2) 01/15/23 08:28 AST 21 U/L (0-40) 01/15/23 08:28 ALT 15 U/L (0-41) 01/15/23 08:28 Alkaline Phosphatase 58 U/L (40-130) 01/15/23 08:28 Creatine Kinase 384 U/L (39-308) H* 01/15/23 08:28 CK-MB (CK-2) 5.9 ng/mL (0-10.4) 01/15/23 08:28 CK-MB (CK-2) Rel Index % (0.0-5.3) 01/15/23 08:28 Troponin T Baseline 105 ng/L (0-15) H* 01/15/23 08:28 Troponin T 120 Minute 104.8 ng/L (0-15) H 01/15/23 10:37 Delta Troponin T -0.2 ABS# (0-10) L 01/15/23 10:37 Troponin T Hi Sens 6Hr 106.3 ng/L (0-15) H 01/15/23 13:55 Troponin T Hi Sens 6Hr Delta 1.3 ng/L (0-12) 01/15/23 13:55 NT-Pro-B Natriuret Pep 9208 pg/mL (0-450) H 01/15/23 08:28 Total Protein 6.0 g/dL (6.6-8.7) L 01/15/23 08:28 Albumin 3.2 g/dL (3.5-5.2) L 01/15/23 08:28 Globulin 2.8 g/dL (1.3-4.6) 01/15/23 08:28 Procalcitonin 0.12 ng/mL (0-0.5) 01/15/23 08:28 Urine Color Yellow (Yellow) 01/15/23 10:28 Urine Appearance Clear (CLEAR) 01/15/23 10:28 Urine pH 6.5 (5-7) 01/15/23 10:28 Ur Specific [place] 1.010 (1.005-1.030) 01/15/23 10:28 Urine Protein Neg (Negative) 01/15/23 10:28 Urine Glucose (UA) 1+ (Normal) H 01/15/23 10:28 Urine Ketones Negative (Negative) 01/15/23 10:28 Urine Blood 3+ (Negative) H 01/15/23 10:28 Urine Nitrate Negative (Negative) 01/15/23 10:28 Urine Bilirubin Neg (Negative) 01/15/23 10:28 Urine Urobilinogen Neg mg/dL (Negative) 01/15/23 10:28 Ur Leukocyte Esterase Negative (Negative) 01/15/23 10:28 Urine RBC 80-100 /hpf (0-2) H 01/15/23 10:28 Urine WBC 0-4 /hpf (0-5) H 01/15/23 10:28 Ur Squamous Epith Cells 0-4 /hpf (0-5) H 01/15/23 10:28 Amorphous Sediment Not Reportable 01/15/23 10:28 Urine Bacteria Trace /hpf (NONE) 01/15/23 10:28 All radiology interpretation(s) finalized by discharge Discharge Plan Discharge Patient Disposition: Admitted As Inpatient Admit Provider: Patricia Oneal Clinical Impression: Pneumonia, Hyponatremia, Weakness, Atrial fibrillation, Elevated troponin, Diastolic heart failure Condition: Stable Coding Level of Care Code ED Medical Oncology Physician for Chg Fwd Documented by User: Alejo Davis DO 01/16/23 06:08 HPI - Weakness General: Chief complaint: Weakness Stated complaint: Weakness Time Seen by Provider: 01/15/23 08:59 History of Present Illness: Patient is a nice 87-year-old male with a history of atrial fibrillation on anticoagulation, pacemaker present (placed due to sick sinus syndrome with atrial fibrillation), status post TAVR, diastolic heart failure, melanoma currently on oral chemotherapy, chronic anemia (per ), and HTN here via EMS along with his for evaluation of weakness. states patient has been incredibly weak over the past week or so. She states there has been multiple occasions where he has fallen or almost fallen secondary to the weakness. Patient states he has not had any episodes of chest pain, shortness of breath, difficulty breathing, lightheadedness, or dizziness. He has not had any syncopal episodes. He states he will be up and moving/walking when he feels like he is going to go down so will often slowly lower himself to the ground. He states there have been a few occasions where he has actually fallen and then been too weak to get up on his own. Patient has sustained minor injuries related to the falls including abrasions. He does complain of some mild lower back pain at the time of my examination that states started after one of the falls. Last echo study below: 11/14/20 CV. echo transesophageal ?1-Normal left ventricular cavity size.? Low normal left ?ventricular systolic function. Left ventricular ejection ?fraction is estimated at 50 o 55 %.? There appeared to be septal bounce with possible paced rhythm. ?2-Severe aortic valve calcification.? Moderate to severe aortic ?valve stenosis.? Aortic valve area is 1.3 cm care by planimetry.? Trace aortic valve regurgitation. ?3-Moderately thickened mitral valve. Moderate mitral annular ?calcification. No mitral valve stenosis. Mild mitral valve regurgitation. ?4-No thrombus visualized in the left atrial appendage.? Normal ?velocity in the left atrial appendage. ?5-Plaque seen in the ascending aorta. ?6-There is no pericardial effusion. ?7-There are no prior echocardiogram studies to compare Care assumed from Liat Pitts. Chart reviewed. Patient has generalized weakness. No chest pain or shortness of breath denies abdominal pain he is currently on immunosuppressive therapy for melanoma. And is chronically anemic. Other history reviewed. Associated symptoms: Reports decreased appetite; Denies chest pain, chills, dysuria or fever(s) Review of Systems Const: Reports: fatigue; Denies: fever(s) or chills Card: Denies: chest pain Resp: Denies: dyspnea GI: Denies: abdominal pain : Denies: dysuria, urinary frequency or urinary urgency Musc: Denies: neck pain or back pain Skin/Breast: Denies: rash PFSH ED PFSH: Medical History (Updated 01/16/23 @ 06:07 by Alejo Davis DO) Aortic stenosis s/p TAVR Atrial fibrillation Benign prostate hyperplasia Chronic anticoagulation xarelto for afib Chronic dyspnea with exertion Chronic fatigue Hearing loss, bilateral hearing aids History of echocardiogram 11/22 EF 50-55%, aortic valve area 1.3cm, 2022 in [place] valve function okay History of melanoma on oral chemotherapy Hx of type 2 diabetes mellitus Hyperlipidemia Hypertension Kidney stones Surgical History (Updated 01/15/23 @ 13:13 by Patricia Oneal MD) History of cholecystectomy History of eye surgery History of knee joint replacement History of pacemaker (10/2015) Hx aflutter with slow ventricular response, placed in 2015, [employer], 01/[address] Jain History of tonsillectomy and adenoidectomy History of transcatheter aortic valve replacement (TAVR) Hx of appendectomy Family History Father CAD (coronary artery disease) Diabetes Mother Cancer Stroke Brother Diabetes Lung disease Cancer Brother Diabetes Family/Other Suicide Denies family history of Clotting disorder Dementia Chronic kidney disease (CKD) Anesthesia complication Bleeding disorder Social History Smoking and tobacco/nicotine status: current every day tobacco/nicotine user Alcohol intake: never Substance/Drug Use: never Physical Exam Const: GENERAL APPEARANCE: cooperative and comfortable ORIENTATION/CONSCIOUSNESS: Yes awake HENMT: COMMON NORMALS: normocephalic, atraumatic and hearing grossly normal bilaterally HEAD & SCALP: normocephalic and atraumatic Resp: COMMON NORMALS: normal respiratory effort, No retractions, No use of accessory muscles and clear to auscultation bilaterally AUSCULTATION: clear to auscultation bilaterally Cardio: COMMON NORMALS: regular rate, regular rhythm and No murmurs present (Cardio) RATE: regular rate RHYTHM: regular rhythm GI: COMMON NORMALS: Soft to palpation and No hepatosplenomegaly present AUSCULTATION: Yes normoactive bowel sounds PALPATION: Yes Soft to palpation, No Tenderness to palpation present (GI), No Guarding due to palpation present (GI) and Yes No hepatosplenomegaly present Extremity: COMMON NORMALS: normal to inspection, capillary refill normal, no clubbing, cyanosis or edema, no calf tenderness and no pedal edema Skin: OTHER: Abrasion left posterior shoulder hematoma dorsum left arm and wrist. Skin tears at both locations. Course Vital Signs: Vital signs: Vital Signs Temperature 98.4 F 01/16/23 04:00 Pulse Rate 60 01/16/23 04:00 Respiratory Rate 18 01/16/23 04:00 Blood Pressure 108/59 01/16/23 04:00 Pulse Oximetry 94 01/16/23 04:00 Oxygen Delivery Me thod Room Air 01/16/23 04:00 MDM - Weakness Medical Decision Making Patient is an 87-year-old male with an extensive past medical history here along with his for concerns of weakness over the past week. Patient has had multiple falls related to the weakness. He arrives with stable vital signs. Blood work showing chronic anemia. His hemoglobin today is 8.5. Previous hemoglobins were obtained from his oncologist at [facility]. In November of this year hemoglobin was 9.5. At last check on December 14 it was 9.2. Hemoccult today negative. Chemistry showing hyponatremia at 126. He has a critically high trop at 105. Patient denies chest pain, shortness of breath, difficulty breathing. He has not had any episodes of chest pain over the past week. Patient's delta troponin is -0.2. BNP is elevated at 9200. He clinically does not appear fluid overloaded. CXR is normal. Pacemaker was interrogated. Appears to be functioning properly. UA is currently pending. Spoke with Dr. Davis who agrees with decision to admit. Labs and imaging reviewed. Hemoglobin has been stable he is mildly hyponatremic at 126 his troponin is elevated to 205. He has a BNP of 9200 he is not appear to be fluid overloaded and chest x-ray does not show heart failure pelvic will admit for hyponatremia elevated troponin And signs of pneumonia on chest x-ray. Lab Data 01/16/23 04:25 01/16/23 04:25 Laboratory Results WBC 2.85 10^3/uL (3.29-11.43) L 01/15/23 08:28 RBC 2.75 10^6/uL (3.85-5.65) L 01/15/23 08:28 Hgb 8.50 g/dL (11.27-16.99) L 01/15/23 08:28 Hct 25.0 % (37-53) L 01/15/23 08:28 MCV 90.9 fl (82-101) 01/15/23 08:28 MCH 30.9 pg (27-33) 01/15/23 08:28 MCHC 34.0 g/dL (30-55) 01/15/23 08:28 RDW 14.6 % (12.1-15.1) 01/15/23 08:28 Plt Count 177 10^3/cmm (157-399) 01/15/23 08:28 MPV 9.1 fL (7.4-10.4) 01/15/23 08:28 Neut % (Auto) 69.8 % 01/15/23 08:28 Lymph % (Auto) 18.6 % 01/15/23 08:28 [place] % (Auto) 8.8 % 01/15/23 08:28 Eos % (Auto) 1.4 % 01/15/23 08:28 Baso % (Auto) 0.7 % 01/15/23 08:28 Neut # (Auto) 1.99 10^3/uL (1.8-7.7) 01/15/23 08:28 Lymph # (Auto) 0.5 10^3/uL (0.8-4.8) L 01/15/23 08:28 [place] # (Auto) 0.3 10^3/uL (0.2-0.9) 01/15/23 08:28 Eos # (Auto) 0.0 10^3/uL (0.0-0.8) 01/15/23 08:28 Baso # (Auto) 0.0 10^3/uL (0.0-0.1) 01/15/23 08:28 Nucleated RBC % (auto) 0 % 01/15/23 08:28 Nucleated RBCs # 0.0 /100WBC 01/15/23 08:28 Sodium 126 mmol/L (136-145) L 01/15/23 08:28 Potassium 3.9 mmol/L (3.5-5.1) 01/15/23 08:28 Chloride 97 mmol/L (98-107) L 01/15/23 08:28 Carbon Dioxide 19 mmol/L (22-29) L 01/15/23 08:28 Anion Gap 13.9 (5-19) 01/15/23 08:28 BUN 19 mg/dL (8-23) 01/15/23 08:28 Creatinine 0.9 mg/dL (0.7-1.2) 01/15/23 08:28 GFR Calculation Not Reportable 01/15/23 08:28 Glucose 121 mg/dL (65-115) H 01/15/23 08:28 Calculated Osmolality 266 mOsm/kg (285-295) L 01/15/23 08:28 Calcium 8.1 mg/dL (8.5-10.5) L 01/15/23 08:28 Total Bilirubin 0.3 mg/dL (0.15-1.2) 01/15/23 08:28 AST 21 U/L (0-40) 01/15/23 08:28 ALT 15 U/L (0-41) 01/15/23 08:28 Alkaline Phosphatase 58 U/L (40-130) 01/15/23 08:28 Creatine Kinase 384 U/L (39-308) H* 01/15/23 08:28 CK-MB (CK-2) 5.9 ng/mL (0-10.4) 01/15/23 08:28 CK-MB (CK-2) Rel Index % (0.0-5.3) 01/15/23 08:28 Troponin T Baseline 105 ng/L (0-15) H* 01/15/23 08:28 Troponin T 120 Minute 104.8 ng/L (0-15) H 01/15/23 10:37 Delta Troponin T -0.2 ABS# (0-10) L 01/15/23 10:37 Troponin T Hi Sens 6Hr 106.3 ng/L (0-15) H 01/15/23 13:55 Troponin T Hi Sens 6Hr Delta 1.3 ng/L (0-12) 01/15/23 13:55 NT-Pro-B Natriuret Pep 9208 pg/mL (0-450) H 01/15/23 08:28 Total Protein 6.0 g/dL (6.6-8.7) L 01/15/23 08:28 Albumin 3.2 g/dL (3.5-5.2) L 01/15/23 08:28 Globulin 2.8 g/dL (1.3-4.6) 01/15/23 08:28 Procalcitonin 0.12 ng/mL (0-0.5) 01/15/23 08:28 Urine Color Yellow (Yellow) 01/15/23 10:28 Urine Appearance Clear (CLEAR) 01/15/23 10:28 Urine pH 6.5 (5-7) 01/15/23 10:28 Ur Specific [place] 1.010 (1.005-1.030) 01/15/23 10:28 Urine Protein Neg (Negative) 01/15/23 10:28 Urine Glucose (UA) 1+ (Normal) H 01/15/23 10:28 Urine Ketones Negative (Negative) 01/15/23 10:28 Urine Blood 3+ (Negative) H 01/15/23 10:28 Urine Nitrate Negative (Negative) 01/15/23 10:28 Urine Bilirubin Neg (Negative) 01/15/23 10:28 Urine Urobilinogen Neg mg/dL (Negative) 01/15/23 10:28 Ur Leukocyte Esterase Negative (Negative) 01/15/23 10:28 Urine RBC 80-100 /hpf (0-2) H 01/15/23 10:28 Urine WBC 0-4 /hpf (0-5) H 01/15/23 10:28 Ur Squamous Epith Cells 0-4 /hpf (0-5) H 01/15/23 10:28 Amorphous Sediment Not Reportable 01/15/23 10:28 Urine Bacteria Trace /hpf (NONE) 01/15/23 10:28 Discharge Plan Discharge Patient Disposition: Admitted As Inpatient Admit Provider: Patricia Oneal Clinical Impression: Pneumonia, Hyponatremia, Weakness, Atrial fibrillation, Elevated troponin, Diastolic heart failure Condition: Stable Coding Level of Care Code ED Medical Oncology Physician for Nola Olivares
[2023-01-15 09:21] LABS: Basophils % 0.7 %; Eosinophils % 1.4 %; Lymphocytes # 0.5 10^3/uL (0.8-4.8); Lymphocytes % 18.6 %; Mean Corpuscular Hemoglobin 30.9 pg (27-33); Mean Corpuscular Volume 90.9 fl (82-101); Mean Platelet Volume 9.1 fL (7.4-10.4); Monocytes # 0.3 10^3/uL (0.2-0.9); Monocytes % 8.8 %; Neutrophils # 1.99 10^3/uL (1.8-7.7); Neutrophils % 69.8 %; Nucleated Red Blood Cells % 0 %; Platelet Count 177 10^3/cmm (157-399); Red Blood Count 2.75 10^6/uL (3.85-5.65); Red Cell Distribution Width 14.6 % (12.1-15.1); White Blood Count 2.85 10^3/uL (3.29-11.43)
--- NOTE | 2023-01-15 09:37 | PC.PHAR ---
PT STATES HE HAS LOST SO MUCH WEIGHT HE NO LONGER HAS TO TAKE THE FOLLOWING MEDICATIONS: FUROSEMIDE 20MG, METFORMIN 500MG, POTASSIUM CHL 8MEQ, TERAZOSIN 5MG, GLIMIPIRIDE 10MG. 01/15/23
[2023-01-15 09:45] LABS: Alanine Aminotransferase 15 U/L (0-41); Albumin Level 3.2 g/dL (3.5-5.2); Alkaline Phosphatase 58 U/L (40-130); Anion Gap 13.9 (5-19); Aspartate Amino Transferase 21 U/L (0-40); Blood Urea Nitrogen 19 mg/dL (8-23); Calcium 8.1 mg/dL (8.5-10.5); Carbon Dioxide 19 mmol/L (22-29); Chloride 97 mmol/L (98-107); Creatinine Clr Calc Pharmacy 65.2917; Globulin 2.8 g/dL (1.3-4.6); Glucose 121 mg/dL (65-115); NT Pro B Type Natriuretic Pept 9208 pg/mL (0-450); Osmolality Calculated 266 mOsm/kg (285-295); Potassium 3.9 mmol/L (3.5-5.1); Sodium 126 mmol/L (136-145); Total Bilirubin 0.3 mg/dL (0.15-1.2); Troponin(5th) Baseline 105 ng/L (0-15)
[2023-01-15] MEDS: acetaminophen 325 mg Tablet 650 MG PO ×2 (09:50→19:51)
[2023-01-15] MEDS: sodium chloride 0.9% 1,000 ML 999 ML IV (10:08)
[2023-01-15 10:52] LABS: Creatine Phosphokinase 384 U/L (39-308)
--- NOTE | 2023-01-15 11:08 | ECG_ITS ---
[facility] Test Date: 2023-01-15 Pat Name: Emmanuel Hidalgo Department: Room: Gender: Male Field Logistics Coordinator: : 1935 Requested By: Liat Pitts Order Number: [id number] Lisa MD: Tg Mcgarry M.D. Measurements Intervals [place] Rate: 60 P: 0 OR: 0 QRS: -89 QRSD: 199 T: 87 QT: 541 QTc: 541 Interpretive Statements 100% V paced rhythm. Further interpretation is not possible. Electronically Signed On 01-15-2023 23:26:12 CONSULTING SERVICES PROJECT MANAGER by Tg Mcgarry M.D. [id number]
[2023-01-15 11:12] LABS: Troponin 5 2HR 104.8 ng/L (0-15); Troponin 5 2HR Delta -0.2 ABS# (0-10)
[2023-01-15 11:17] LABS: CKMB 5.9 ng/mL (0-10.4)
[2023-01-15 11:39] LABS: Glucose Urine UA 1+ (Normal); Ketones Urine Negative (Negative); Protein Urine Neg (Negative); Urine Appearance Clear (CLEAR); Urine Color Yellow (Yellow); pH Urine 6.5 (5-7)
[2023-01-15 11:40] LABS: Add Urine Culture? Yes; Add Urine Microscopic? YES; Bacteria Urine TRACE /hpf; Bilirubin Urine Neg (Negative); Blood Urine 3+ (Negative); Leukocyte Esterase Urine Negative (Negative); Nitrate Urine Negative (Negative); RBC Urine 80-100 /hpf (0-2); Squamous Epithelial Cell Urine 0-4 /hpf (0-5); Urobilinogen Urine Neg (Negative); WBC Urine 0-4 /hpf (0-5)
--- NOTE | 2023-01-15 12:57 | CT_ITS ---
WS: [id number] CT HEAD TECHNIQUE: Noncontrast CT of the head obtained from the skullbase to the vertex. CLINICAL INFORMATION: weakness COMPARISON: MRI 2015 DLP: 1131.[address] scans at [facility] use at least one of these dose optimization techniques: automated e xposure control; mA and/or kV adjustment per patient size (includes targeted exams where dose is matc hed to clinical indication); or iterative reconstruction. FINDINGS: No evidence of intracranial hemorrhage or mass effect. Ventricular system and basal cisterns are hubbard nt. Moderate small vessel changes with moderate parenchymal volume loss. Intracranial vascular calcif ication. No extra-axial fluid collections. No evidence of mass or mass effect. Paranasal sinuses and mastoid air cells are well aerated. .Normal visualized soft tissues. IMPRESSION: 1. No evidence of intracranial hemorrhage or mass effect. 2. Moderate small vessel changes with moderate parenchymal volume loss. 3. Intracranial vascular calcification. 4. No acute intracranial findings.
--- NOTE | 2023-01-15 13:15 | P.HP_ITS ---
Providers/Chief Complaint Admitting Physician: Patricia Oneal MD Primary Care Provider: Nic Wang MD Chief Complaint: Weakness History of Present Illness Emmanuel Dhillon is a 87 year old male who presented to the emergency room with chief complaint of increasing weakness that has been escalating lately. He had a fall last night. He was getting ready to go to bed and fell down after losing his balance when he bent over. A neighbor had to come over to help him get up. This morning at first he seemed okay after awakening. He got up and dressed and then used his walker to try to get to the kitchen but about intermediate there his legs just gave out and he fell down again. Between the 2 falls he sustained abrasion to his left forearm and several skin tears to his back that have been bleeding. He also complained of pain in his lower back. Unclear if he hit his head when he fell. His was nearby but did not see the fall. No known loss of consciousness. He has had chronic problems with fatigue and has had issues with weakness in the past. He had TAVR done due to a history of aortic stenosis at the beginning of this year or end of last year with the hope that it would help with his symptoms but it has not really made much of a difference. In addition to aortic stenosis he has a history of chronic atrial fibrillation/flutter. He had episode of slow ventricular response back in 2015 and subsequently had pacemaker placed. That pacemaker generator was changed [place] [address] Guy. He is on chronic anticoagulation in the form of Xarelto. He follows with Dr. Mcgarry from a cardiac standpoint. He has been having lower extremity edema. He has chronic diastolic CHF with ejection fraction that was between 50 and 55% in 2020. He is supposed to be on diuretic therapy but will not take it. He has had no complaints of chest pain. No dizziness or other changes preceding falls. No focal weakness more general/all over. Does not really complain of shortness of breath according to his . He has been having issues with strange dreams and sometimes wakes up screaming and saying strange things to his . He is on doxepin. He continues to smoke 2 to 3 cigars a day. He has had some chills but no reports of any fevers. He has had a mild cough. After his fall last night when he sustained multiple skin tears, he had 1 episode of vomiting. He is incontinent of urine. No recent change in bowel function. No report of any melena or hematochezia though when he has to strain a lot due to hard stools he will notice small amounts of blood. Work-up in the emergency room showed multiple concerns. Hemoglobin was noted to be 8.5. This is lower than it has been over the past year. Baseline troponin was around the 100, CK was elevated at 384, and BNP was elevated at 9208 where prior values earlier this year had been 2800 or so. Chest x-ray showed groundglass infiltrate in the right lower lobe suspicious for pneumonia. No pleural effusion was noted and remainder of the lungs were clear. Given known history, edema, and elevated BNP, he was given a dose of Lasix in the emergency room. Also noted was some microscopic hematuria for which he received Lasix. He does have a history of kidney stones but has never required intervention. Denies any flank pain or changes in urinary symptoms. He is currently unable to perform ADLs and a week ago was able to get around much better. He does have a history of melanoma and is on 2 oral chemotherapy agents Mektovi and Braftovi. Recent comparative lab obtained from oncologist as well as medication records. Review of Systems General: Reports: Other (ROS as per HPI or as otherwise noted here) Medications/Allergies Home Medications Medication Instructions Recorded Confirmed Last Taken Type finasteride 5 mg tablet (Proscar) 5 mg PO QAM 05/13/19 01/15/23 01/14/23 History rivaroxaban 20 mg tablet (Xarelto) 20 mg PO QAM 05/13/19 01/15/23 01/14/23 History tamsulosin 0.4 mg capsule 0.4 mg PO QAM 05/13/19 01/15/23 01/14/23 History atorvastatin 40 mg tablet 40 mg PO QAM 10/18/21 01/15/23 01/14/23 History binimetinib 15 mg tablet 45 mg PO Q12H 01/15/23 01/15/23 01/14/23 History doxepin 25 mg capsule See Rx Instructions .Route .COMPLEX 01/15/23 01/15/23 01/14/23 History encorafenib 75 mg capsule 450 mg PO DAILY 01/15/23 01/15/23 01/14/23 History hydroxyzine HCl 25 mg tablet 25 mg PO QID PRN Itching 01/15/23 01/15/23 Unknown History megestrol 625 mg/5 mL (125 mg/mL) 5 ml PO DAILY appetite 01/15/23 01/15/23 Unknown History oral suspension polyethylene glycol 3350 17 gram 17 g PO DAILY 01/15/23 01/15/23 01/14/23 History oral powder packet (Miralax) Allergies Allergy/AdvReac Type Severity Reaction Status Date / Time Penicillins Allergy ALGY-Rash Verified 09/24/22 08:27 PFSH Acute PFSH: Medical History (Updated 01/15/23 @ 18:16 by Patricia Oneal MD) Aortic stenosis s/p TAVR Atrial fibrillation Benign prostate hyperplasia Chronic anticoagulation xarelto for afib Chronic dyspnea with exertion Chronic fatigue Hearing loss, bilateral hearing aids History of echocardiogram 11/22 EF 50-55%, aortic valve area 1.3cm, 2022 in [place] valve function okay History of melanoma on oral chemotherapy Hx of type 2 diabetes mellitus Hyperlipidemia Hypertension Kidney stones Surgical History (Updated 01/15/23 @ 13:13 by Patricia Oneal MD) History of cholecystectomy History of eye surgery History of knee joint replacement History of pacemaker (10/2015) Hx aflutter with slow ventricular response, placed in 2015, [employer], 01/[address] Guy History of tonsillectomy and adenoidectomy History of transcatheter aortic valve replacement (TAVR) Hx of appendectomy Family History Father CAD (coronary artery disease) Diabetes Mother Cancer Stroke Brother Diabetes Lung disease Cancer Brother Diabetes Family/Other Suicide Denies family history of Clotting disorder Dementia Chronic kidney disease (CKD) Anesthesia complication Bleeding disorder Social History Smoking and tobacco/nicotine status: current every day tobacco/nicotine user Alcohol intake: never Substance/Drug Use: never Vitals/I&O/Wt Last Vital Signs Temp 97.4 F L 01/15/23 08:58 Pulse 60 01/15/23 11:41 Resp 14 01/15/23 11:41 BP 110/61 01/15/23 11:41 Pulse Ox 100 01/15/23 11:41 O2 Del Method Room Air 01/15/23 11:41 Weight last 48 hrs Weight 72.575 kg Physical Exam Narrative: Patient is lying on ER gurney with his eyes closed. He is awake but hard of hearing. Normocephalic. Extraocular movements are intact. Pupils are equally reactive. Conjunctive a are pale. Oropharynx with pale, dry mucous membranes. No petechiae or oral lesions. Neck is supple. Lungs are clear to auscultation without any rales wheezes or rhonchi noted. Cardiovascular exam reveals a regular rhythm. Peripheral pulses 1+. Abdomen is soft. No CVA tenderness. Positive bowel sounds. Lower extremities skin is dry but pitting edema noted to both lower extremities slightly more on right lower extremity than the left but 2+ to mid [place] bilaterally. Speech is clear. Moves all extremities but generally weak, requires assistance to sit up. Skin: OTHER: Data 01/15/23 08:28 01/15/23 08:28 Other Labs: Radiology Reports from today CXR There is a groundglass infiltrate in the RIGHT lower lobe suspicious for pneumonia. Remaining lung whelan are clear. No pneumothorax. No pleural effusion identified. Heart size is within normal limits. Signs of previous cardiac valve replacement. An ICD seen over the LEFT chest. Surgical clips along the RIGHT axilla. Bony structures are intact. IMPRESSION: 1. Groundglass infiltrate in the RIGHT lower lobe suspicious for pneumonia. Lumbar Spine No acute fracture or dislocation. Degenerative disc changes and spondylosis at all levels. Posterior elements are intact. There is straightening of the lumbar spine and slight dextroscoliosis. Dense aortoiliac atherosclerosis. Nonspecific RIGHT and LEFT upper abdominal calcifications. Laminated ovoid 2.5 cm calcification in the RIGHT pelvis that may represent a bladder calculus. IMPRESSION: 1. No fracture or malalignment. 2. Moderately advanced degenerative changes, straightening. 3. Additional nonurgent minor findings. CT head IMPRESSION: 1.? No evidence of intracranial hemorrhage or mass effect. 2.? Moderate small vessel changes with moderate parenchymal volume loss. 3.? Intracranial vascular calcification. 4.? No acute intracranial findings. Laboratory Results WBC 2.85 10^3/uL (3.29-11.43) L 01/15/23 08:28 RBC 2.75 10^6/uL (3.85-5.65) L 01/15/23 08: Hgb 8.50 g/dL (11.27-16.99) L 01/15/23 08: Hct 25.0 % (37-53) L 01/15/23 08: MCV 90.9 fl (82-101) 01/15/23 08: MCH 30.9 pg (27-33) 01/15/23 08: MCHC 34.0 g/dL (30-55) 01/15/23 08: RDW 14.6 % (12.1-15.1) 01/15/23 08: Plt Count 177 10^3/cmm (157-399) 01/15/23 08: MPV 9.1 fL (7.4-10.4) 01/15/23 08: Neut % (Auto) 69.8 % 01/15/23 08: Lymph % (Auto) 18.6 % 01/15/23 08: [place] % (Auto) 8.8 % 01/15/23 08: Eos % (Auto) 1.4 % 01/15/23 08: Baso % (Auto) 0.7 % 01/15/23 08: Neut # (Auto) 1.99 10^3/uL (1.8-7.7) 01/15/23 08: Lymph # (Auto) 0.5 10^3/uL (0.8-4.8) L 01/15/23 08: [place] # (Auto) 0.3 10^3/uL (0.2-0.9) 01/15/23 08: Eos # (Auto) 0.0 10^3/uL (0.0-0.8) 01/15/23 08: Baso # (Auto) 0.0 10^3/uL (0.0-0.1) 01/15/23 08: Nucleated RBC % (auto) 0 % 01/15/23 08: Nucleated RBCs # 0.0 /100WBC 01/15/23 08: Sodium 126 mmol/L (136-145) L 01/15/23 08: Potassium 3.9 mmol/L (3.5-5.1) 01/15/23 08: Chloride 97 mmol/L (98-107) L 01/15/23 08:28 Carbon Dioxide 19 mmol/L (22-29) L 01/15/23 08:28 Anion Gap 13.9 (5-19) 01/15/23 08:28 BUN 19 mg/dL (8-23) 01/15/23 08:28 Creatinine 0.9 mg/dL (0.7-1.2) 01/15/23 08:28 GFR Calculation Not Reportable 01/15/23 08:28 Glucose 121 mg/dL (65-115) H 01/15/23 08:28 Calculated Osmolality 266 mOsm/kg (285-295) L 01/15/23 08:28 Calcium 8.1 mg/dL (8.5-10.5) L 01/15/23 08:28 Total Bilirubin 0.3 mg/dL (0.15-1.2) 01/15/23 08:28 AST 21 U/L (0-40) 01/15/23 08:28 ALT 15 U/L (0-41) 01/15/23 08:28 Alkaline Phosphatase 58 U/L (40-130) 01/15/23 08:28 Creatine Kinase 384 U/L (39-308) H* 01/15/23 08:28 CK-MB (CK-2) 5.9 ng/mL (0-10.4) 01/15/23 08:28 CK-MB (CK-2) Rel Index % (0.0-5.3) 01/15/23 08:28 Troponin T Baseline 105 ng/L (0-15) H* 01/15/23 08:28 Troponin T 120 Minute 104.8 ng/L (0-15) H 01/15/23 10:37 Delta Troponin T -0.2 ABS# (0-10) L 01/15/23 10:37 NT-Pro-B Natriuret Pep 9208 pg/mL (0-450) H 01/15/23 08:28 Total Protein 6.0 g/dL (6.6-8.7) L 01/15/23 08:28 Albumin 3.2 g/dL (3.5-5.2) L 01/15/23 08:28 Globulin 2.8 g/dL (1.3-4.6) 01/15/23 08:28 Urine Color Yellow (Yellow) 01/15/23 10:28 Urine Appearance Clear (CLEAR) 01/15/23 10:28 Urine pH 6.5 (5-7) 01/15/23 10:28 Ur Specific [place] 1.010 (1.005-1.030) 01/15/23 10:28 Urine Protein Neg (Negative) 01/15/23 10:28 Urine Glucose (UA) 1+ (Normal) H 01/15/23 10:28 Urine Ketones Negative (Negative) 01/15/23 10:28 Urine Blood 3+ (Negative) H 01/15/23 10:28 Urine Nitrate Negative (Negative) 01/15/23 10:28 Urine Bilirubin Neg (Negative) 01/15/23 10:28 Urine Urobilinogen Neg mg/dL (Negative) 01/15/23 10:28 Ur Leukocyte Esterase Negative (Negative) 01/15/23 10:28 Urine RBC 80-100 /hpf (0-2) H 01/15/23 10:28 Urine WBC 0-4 /hpf (0-5) H 01/15/23 10:28 Ur Squamous Epith Cells 0-4 /hpf (0-5) H 01/15/23 10:28 Amorphous Sediment Not Reportable 01/15/23 10:28 Urine Bacteria Trace /hpf (NONE) 01/15/23 10:28 Prior Laboratory Tests from [facility] 10/19/21 09/24/22 15:00 16:47 NT-Pro-B Natriuret Pep 1211 H 2807 H OUTSIDE LABS 11/24: Na+ 137, Cl- 109, BUN/Cr 31/0.89, WBC 5.5, Hgb 9.5, plt 181, MCV 92.7 12/14: Na+ 135, Cl- 102, BUN/Cr 27/0.96, WBC 5.2, Hgb 9.2, 232, MCV 92.2 March to December 2022 Hgb ranged from low of 8.8 in September to 11.4 in April (9.8>11.4>9.7>11.1>11.0>9.3> 8.9>8.8>10.1>9.5>9.2) EKG 1 and 2: I personally reviewed and interpreted this EKG as follows: My Interpretation: 1st EKG with atria lflutter at 72, several paced beats, nonspecific changes. 2nd EKG with ventricular paced rhythm at 60. A&P Assessment and plan (1) Recurrent falls: With progressively worsening weakness over the last week or so, multifactorial related to heart failure, progressive anemia, potentially elevation in troponin. He does have some elevation in CK although not great. His Mektovi can be assoc iated with myopathy though those values are most likely secondary to trauma from his falls. His Braftovi can be associated with cardiomyopathy. Last available echo here is from 2020. He has had an echo this year although was done by cardiothoracic surgery provider and reportedly revealed that the valve was functioning okay. Timing of this echo is not known to me. Weakness appears more general than focal. No evidence of arrhythmias though he does have EKGs demonstrating paced and nonpaced rhythms. He has advanced age as a contributor. Chest x-ray shows right lower lobe groundglass infiltrate suggesting pneumonia and there is some microscopic hematuria on urinalysis so an infectious etiology of progressively worsening symptoms also within the differential. (2) Elevated troponin: Noted on admission. No known history of coronary artery disease. Second troponin similar. Has a history of chronic diastolic CHF, atrial fibrillation with pacemaker and TAVR. Also with advanced age. Significance of current troponin values unclear. (3) Diastolic heart failure: Chronic with acute exacerbation. Has not been taking Lasix which has been prescribed previously. He is on Braftovi which can have an adverse effect of cardiomyopathy. Not sure if it is contributing but something to keep in mind. Has hyponatremia and hypochloremia, hypoalbuminemia and potential indications of volume overload. Qualifiers: Heart failure chronicity: acute on chronic Qualified Code(s): I50.33 - Acute on chronic diastolic (congestive) heart failure (4) Normocytic anemia: Present on admission. Normocytic. Is on chronic anticoagulation. No report of obvious GI losses. Has microscopic hematuria noted on UA currently of unclear significance. Has sustained falls with significant skin tears twice in the last 24 hours. Saturated dressings suggest a decent amount of blood loss from these various wounds that might account for drop in hemoglobin from prior values. Hemoglobin on December 14 at oncologist office was 9.2. He complains of some low back pain and groin pain currently. Does have some edema suggesting potential contribution of hemodilution though I do not know that that is what were dealing with here. His 2 oral chemotherapy agents Mektovi and Braftovi both can contribute to anemia/hemorrhage so is something to keep in mind. (5) Abrasions of multiple sites: Abrasions with skin tears to right forearm and 2 noted to the back. All 3 areas covered with Tegaderm by me during examination (6) Pneumonia: Present on admission. Organism unknown. With episode of vomiting last evening could be secondary to aspiration. Received empiric Levaquin in the emergency room. (7) Microscopic hematuria: Present on admission in a patient with chronic anticoagulation. No complaints of urinary symptoms. Chronically incontinent. Does have a history of kidney stones in the past. (8) Atrial fibrillation: Permanent atrial fibrillation/flutter. Has pacemaker due to history of slow ventricular response. Not on any rate controlling medications. Qualifiers: Atrial fibrillation type: longstanding persistent Qualified Code(s): I48.11 - Longstanding persistent atrial fibrillation (9) Chronic anticoagulation: On Xarelto due to atrial fibrillation history (10) Status post transcatheter aortic valve replacement (TAVR) using bioprosthesis: Secondary to aortic stenosis, done at the end of 2021 early 2022 (11) Hyperlipidemia: Chronically on statin therapy (12) Benign prostate hyperplasia: Chronically on tamsulosin and finasteride (13) History of melanoma: On chronic Mektovi and Braftovi orally, followed with oncology in [place] (14) Chronic fatigue: (15) Hearing loss, bilateral: (16) Advanced age: Plan Prior history of diabetes, no longer on treatment Prior history of hypertension, no longer on treatment Difficulty sleeping on doxepin with recent vivid dreams and waking up screaming Inpatient admission We will continue a low-dose of IV diuresis monitoring urine output, renal function and blood pressures closely Potassium replacement along with diuresis Strict I's and O's and daily weights Telemetry monitoring Continue serial cardiac enzymes and EKGs Limited echocardiogram to evaluate for change in ejection fraction At least every shift neurochecks Monitor hemoglobin for further drop check Hemoccult of stool PPI We will hold Xarelto currently until we know he does not have ongoing blood loss Wound care to areas with skin tears Continue empiric Levaquin for coverage of both pulmonary and urinary sources of infection Follow-up pending blood and urine cultures Home statin therapy is currently held due to mildly elevated CK Continue home finasteride and Flomax presently Hold home doxepin secondary to dreams, confusion and waking up screaming along with increasing weakness For now we will allow patient to continue his oral immunotherapy agents for melanoma though need to keep in mind that these could be contributor to presen tation if definitive medical etiology beyond advanced age and baseline comorbid conditions is not identified PT and OT evaluations Check TSH VTE prophylaxis: SCDs, pharmacological DVT prophylaxis currently contraindicated due to chronic Xarelto therapy and current worsening anemia compared to prior labs and bleeding from several skin tear sites GI Prophylaxis: PPI Telemetry: ordered due to known arrhythmia and plan for IV diuresis Benjamin: not currently indicated though patient agreeable if necessary Line(s): peripheral IVs Disposition plan: Home with outpatient follow up to Dr. Wang, his oncologist in [place] and possibly Dr. Mcgarry/Linda Kessler sooner than currently scheduled appointment which is not until April 2023. Depending on clinical course may benefit from home therapy Code Status: Full Code as per discussion with patient's Sharona Dhillon Supportive care otherwise Findings, concerns and plans were discussed with patient and they were given an opportunity to ask questions Attestations Medical Necessity Statement*: Anticipated stay greater than two midnights in this 87-year-old gentleman who has multiple acute on chronic issues including CHF, anemia that has worsened compared to recent labs, progressive weakness lately leading to 2 falls in the last 24 hours with several skin tears and bleeding. currently receiving serial labs and IV Lasix along with close monitoring. He has elevated cardiac enzymes have currently unclear significance. Also noted is abnormal chest x-ray with right lower lobe infiltrate and microscopic hematuria on urinalysis, both of which could be indications of infectious process. He currently has low white blood count and is known to be on 2 immunotherapy agents/chemotherapy due to history of melanoma. With his advanced age and comorbid medical conditions as outlined at high risk of further clinical decline. Current condition is a change from how he was last week. other plans as noted. Coding Level of Care Code 55730 High Time for a total of 80 minutes, includes reviewing past or interval history, examining/interviewing patient, placing orders and documenting encount er Diagnoses Recurrent falls R29.6 Elevated troponin R79.89 Diastolic heart failure I50.33 Heart failure chronicity: acute on chronic Normocytic anemia D64.9 Abrasions of multiple sites T07.XXXA Pneumonia J18.9 Microscopic hematuria R31.29 Atrial fibrillation I48.11 Atrial fibrillation type: longstanding persistent Chronic anticoagulation Z79.01 Status post transcatheter aortic valve replacement (TAVR) using bioprosthesis Z 95.3 Hyperlipidemia E78.5 Benign prostate hyperplasia N40.0 History of melanoma Z85.820 Chronic fatigue R53.82 Hearing loss, bilateral H91.93 Advanced age R54
[2023-01-15] MEDS: FUROsemide 10 mg/mL SDV 2mL 20 MG IVP ×2 (13:45→18:14)
[2023-01-15] MEDS: levofloxacin-dextrose 5 % 750 MG/150 ML PREMIX 100 MG IV (14:04)
[2023-01-15 14:24] LABS: Procalcitonin 0.12 ng/mL (0-0.5)
[2023-01-15 14:32] LABS: Troponin 5 6HR 106.3 ng/L (0-15); Troponin 5 6HR Delta 1.3 ng/L (0-12)
--- NOTE | 2023-01-15 15:08 | ECG_ITS ---
[facility] Test Date: 2023-01-15 Pat Name: Emmanuel Hidalgo Department: Room: Gender: Male Deputy Juvenile Officer: : 1935 Requested By: Liat Pitts Order Number: [id number] Lisa MD: Tg Mcgarry M.D. Measurements Intervals [place] Rate: 60 P: 0 ID: 0 QRS: -26 QRSD: 121 T: -12 QT: 501 QTc: 503 Interpretive Statements Possibly atrial fibrillation with a demand V paced rhythm BORDERLINE LEFT AXIS DEVIATION [QRS AXIS < -20] POSSIBLE RIGHT VENTRICULAR CONDUCTION DELAY [RSR (QR) IN V1/V2] ST DEVIATION AND MODERATE T-WAVE ABNORMALITY, CONSIDER ANTEROLATERAL ISCHEMIA [-0.1+ mV T-WAVE IN V3-V6] ST DEVIATION AND MODERATE T-WAVE ABNORMALITY, CONSIDER INFERIOR ISCHEMIA [-0.1+ mV T-WAVE IN II/aVF] Compared to ECG 01/15/2023 11:08:26 T-wave abnormality now present Possible ischemia now present Electronically Signed On 01-15-2023 23:28:40 [employer] by Tg Mcgarry M.D. [email or web address]
--- NOTE | 2023-01-15 17:56 | USCV_ITS ---
Emmanuel Hidalgo Age: 87 Gender: M : 1935 Exam Date: 01/15/2023 19:50 Ordering Phys: Patricia Oneal MD Technologist: SAUMYA [place] [facility] [place]: oral chemo a/w cardiomyopathy, elevated BNP, edema. Hx TAVR 2021. s/p pacer 2012. BP: 111 / 58 HR: 54 Rhythm: Atrial fibrillation Technical Quality: Poor MEASUREMENTS (Male / Female) Normal Values 2D ECHO LV Diastolic Diameter PLAX 4.3 cm 4.2 - 5.9 / 3.9 - 5.3 cm LV Systolic Diameter PLAX 2.8 cm IVS Diastolic Thickness 2.0 cm 0.6 - 1.0 / 0.6 - 0.9 cm IVS Systolic Thickness 1.9 cm LVPW Diastolic Thickness 1.7 cm 0.6 - 1.0 / 0.6 - 0.9 cm LVPW Systolic Thickness 2.4 cm LVOT Diameter 1.9 cm LV Ejection Fraction 2D Teich 64.5 % LV Ejection Fraction MOD 2C 67.5 % LV Ejection Fraction 2C AL 67.8 % LA Diameter 4.1 cm LA Width 5.3 cm LA Height 5.3 cm RA Width 3.4 cm RA Height 4.5 cm Aorta at Sinotubular Diameter 2.0 cm IVC Diameter 2.2 cm M-MODE Aortic Annulus Diameter 2.6 cm LA Ao Ratio MM 1.7 MV E Point Septal Separation 0.9 cm DOPPLER AV Peak Velocity 171.0 cm/s LVOT Peak Velocity 79.0 cm/s AV Area Cont Eq vti 1.3 cm squared AV Area Cont Eq pk 1.4 cm squared MV Peak Velocity 111.0 cm/s MV Area PHT 3.6 cm squared Mitral E to A Ratio 176.4 MV E' Velocity 88.0 cm/s TR Peak Velocity 261.0 cm/s TR Peak Gradient 27.2 mmHg TV Peak E Velocity 86.0 cm/s Right Atrial Pressure 5.0 mmHg Pulmonary Artery Systolic Pressu 32.2 mmHg PV Peak Velocity 81.0 cm/s RV Acceleration Time 0.1 s RV Ejection Time 0.3 s RV AcT/ET 0.3 FINDINGS Left Ventricle The examination is poor and limited. The ventricle is poorly seen but appears to be normal in size and function without any obvious wall motion disturbances. An estimated ejection fraction is 55 to 60%. Diastolic function not available. The rhythm may be atrial fibrillation. Right Ventricle Normal right ventricular size and systolic function. Catheter/pacemaker wire in the right ventricular cavity. Right Atrium The right atrium is normal in size. Left Atrium Mildly increased left atrial size. Mitral Valve Mitral valve not well visualized. There is mitral annular calcification. There may be mild mitral regurgitation. Aortic Valve Aortic valve not well visualized. There has been a TAVR. There is at least the expected amount of aortic stenosis however it does not appear to be significant. The mean gradient is 6 mmHg suggesting mild aortic stenosis. No obvious aortic insufficiency. Tricuspid Valve Tricuspid valve not well visualized. Trace tricuspid valve regurgitation. Pulmonic Valve Pulmonic valve not well visualized. Pericardium Normal pericardium without effusion. Aorta Normal ascending aorta dimension. IVC The inferior vena cava appears normal. CONCLUSIONS The examination is poor and limited. The ventricle is poorly seen but appears to be normal in size and function without any obvious wall motion disturbances. An estimated ejection fraction is 55 to 60%. Diastolic function not available. The rhythm may be atrial fibrillation. Normal right ventricular size and systolic function. Catheter/pacemaker wire in the right ventricular cavity. Mildly increased left atrial size. Mitral valve not well visualized. There is mitral annular calcification. There may be mild mitral regurgitation. Aortic valve not well visualized. There has been a TAVR. There is at least the expected amount of aortic stenosis however it does not appear to be significant. The mean gradient is 6 mmHg suggesting mild aortic stenosis. No obvious aortic insufficiency. The previous ultrasound was 11/14/2020. A TAVR has been performed since that time. Otherwise, there has been no change. Dr. Edmundo Yun MD (Electronically Signed) Final Date: 16 January 2023 07:51 S
[2023-01-15] MEDS: docusate sodium 100 mg Capsule PO (18:14)
[2023-01-15 18:49] LABS: Hematocrit 23.8 % (37-53)
--- NOTE | 2023-01-15 21:39 | PC.NURSE ---
total bed change due to being left by dayshift er and dayshift medsurg staff.
[2023-01-16] VITALS (18 sets, daily range): BP systolic 108–159; BP diastolic 59–75; PULSE 59–93; RESP 16–20; TEMP 36.1–36.9; O2SAT 94–100
[2023-01-16] MEDS: acetaminophen 325 mg Tablet 650 MG PO ×2 (03:04→14:21)
[2023-01-16 05:13] LABS: Basophils % 1.1 %; Eosinophils # 0.2 10^3/uL (0.0-0.8); Eosinophils % 6.1 %; Lymphocytes # 0.8 10^3/uL (0.8-4.8); Lymphocytes % 27.4 %; Mean Corpuscular Hemoglobin 30.4 pg (27-33); Monocytes # 0.5 10^3/uL (0.2-0.9); Monocytes % 16.2 %; Neutrophils # 1.35 10^3/uL (1.8-7.7); Neutrophils % 48.8 %; Nucleated Red Blood Cells % 0 %; Platelet Count 139 10^3/cmm (157-399); Red Cell Distribution Width 14.6 % (12.1-15.1); White Blood Count 2.77 10^3/uL (3.29-11.43)
[2023-01-16] MEDS: tamsulosin 0.4 mg Capsule PO (05:27)
[2023-01-16] MEDS: levoFLOXacin 750 mg Tablet PO (05:27)
[2023-01-16] MEDS: finasteride 5 mg Tablet PO (05:27)
[2023-01-16 05:40] LABS: Creatine Phosphokinase 443 U/L (39-308)
[2023-01-16 05:44] LABS: Anion Gap 13.7 (5-19); Blood Urea Nitrogen 19 mg/dL (8-23); Calcium 7.9 mg/dL (8.5-10.5); Carbon Dioxide 20 mmol/L (22-29); Chloride 97 mmol/L (98-107); Glucose 63 mg/dL (65-115); Magnesium 1.7 mg/dL (1.7-2.3); Osmolality Calculated 264 mOsm/kg (285-295); Phosphorus 3.9 mg/dL (2.5-4.5); Potassium 3.7 mmol/L (3.5-5.1); Sodium 127 mmol/L (136-145); Thyroid Stimulating Hormone 4.08 uIU/mL (0.27-4.20)
[2023-01-16] MEDS: docusate sodium 100 mg Capsule PO (07:56)
[2023-01-16] MEDS: rivaroxaban 10 mg Tablet 20 MG PO (07:56)
[2023-01-16] MEDS: polyethylene glycol 3350 Pkt 17 gm PO (07:56)
[2023-01-16] MEDS: pantoprazole DR 40 mg Tablet PO (07:56)
[2023-01-16] MEDS: potassium chloride ER 10 mEq Tablet PO (07:56)
--- NOTE | 2023-01-16 08:24 | US_ITS ---
WS: [id number] ULTRASOUND RENAL TECHNIQUE: Ultrasound examination of both kidneys. CLINICAL INFORMATION: hematuria COMPARISON: None. FINDINGS: RIGHT: Bilateral simple renal cysts. Right kidney is normal in size and appearance. Echogenicity: Normal. Cortical thickness: 1.2 cm; Normal. Hydronephrosis: None. Perinephric fluid: None. Right kidney measures: 12.9 cm x 5.2 cm x 4.8 cm. LEFT: Left kidney is normal in size and appearance. Echogenicity: Normal. Cortical thickness: 1.9 cm; Normal. Hydronephrosis: None. Perinephric fluid: None. Left kidney measures: 12.1 cm x 4.5 cm x 5.7 cm. Normal visualized aorta. Enlarged prostate described below. IMPRESSION: 1. No hydronephrosis in either kidney. 2. Enlarged prostate measuring 4.3 x 4.3 x 4.7 cm. Recommend correlation PSA. 3. Bladder appears normal. 4. Bilateral simple renal cysts largest on the RIGHT measuring 2.5 x 3.1 cm in the upper pole. Large st on the LEFT measuring 2.7 x 2.4 x 2.3 cm.
[2023-01-16 09:20] LABS: Ferritin 114 ng/mL (30-400); Iron 15 ug/dL (59-158); Total Iron Binding Capacity 149 mcg/dl; Unsaturated Iron Binding 134 ug/dL (112-347)
[2023-01-16 09:36] LABS: Folate Level 18.7 ng/mL (4.5-32.2)
--- NOTE | 2023-01-16 10:09 | PC.CHAP ---
Pastoral Care Encounter/Spiritual Assessment Type of Contact [] Declined group home paraprofessional visit [] Patient/Family/Request visit [] Outpatient visit [] Follow-up visit [] Physician referral [] Code/Alert [x] Routine visit [] Staff referral [] Actively dying [] Patient sleeping [x] Family support [] [] Out of room [] Palliative care [] [] Receiving care in room [] Pre-surgical visit [] Trauma [] Long length of stay [] ICU visit [] Other: Relational/Emotional Strength [x] Patient feels connected with others/family/visitors/staff [] Distress [] Loneliness/isolation [] Abandonment Spirituality of Patient [x] Person of Dipika [] Attends Orthodox of their Dipika [x] Believes in Prayer [] Reads Bible or Restorationist materials [] There are Spiritual issues to be addressed Home Energy Inspector Interventions [x] Prayer [x] Active listening [] Non-anxious presence [] Spiritual/emotional support [] Crisis/trauma care [] Spiritual counseling [] Bereavement support [] Provided bereavement packet [] Provided Bible/devotional materials [] Provided toy/stuffed animal, coloring book to patient or family member [] Provided Communion [] Anointing/[place] [] Salvation [] Completed spiritual assessment [] Other: Impact on Illness or Injury [] Angry [] Fearful [] Anxious [] Often cries [] Exhaustion [] Unable to work [] Unable to attend synagogue [] Unable to walk/stand [] Unable to read [] Unable to drive [] Unable to eat/drink [] Unable to sleep [] Unable to be with family [] Patient intubated [] Other: Summary Time spent with patient 20 min
[2023-01-16 10:30] LABS: C Reactive Protein 52.3 mg/L (0.0-4.9)
[2023-01-16 10:37] LABS: Procalcitonin 0.14 ng/mL (0-0.5)
--- NOTE | 2023-01-16 13:33 | CT_ITS ---
WS: [id number] CT CHEST, ABDOMEN, AND PELVIS TECHNIQUE: Noncontrast CT of the chest, abdomen, and pelvis with coronal and sagittal reformatted noe ges. CLINICAL INFORMATION: fall weakness COMPARISON: None. DLP: 803.[address] scans at [facility] use at least one of these dose optimization techniques: automated e xposure control; mA and/or kV adjustment per patient size (includes targeted exams where dose is matc hed to clinical indication); or iterative reconstruction. CT CHEST: Normal caliber thoracic aorta. Aortic calcification. Coronary calcification. Cardiac pacer. Aortic ro ot graft. Mitral annulus calcification. Small RIGHT greater than LEFT pleural effusions with compressive atelectasis in the lung bases RIGHT greater than LEFT. Lungs are otherwise well aerated. No significant mediastinal or hilar lymphadenopa thy. No axillary lymphadenopathy. Surgical clips RIGHT axilla. Mild thoracic curve. Mild thoracic kyphosis. CT ABDOMEN AND PELVIS: Noncontrast liver is normal. Normal noncontrast spleen. Normal GE junction. Air-fluid level in the st omach. Prior cholecystectomy. Fatty atrophy of the pancreas. Pancreatic calcifications. Dense aortic calcification. Slightly ectatic distal abdominal aorta measuring 2.1 x 2.4 cm. Dense iliac calcificat ion. Adrenal glands are normal. No hydronephrosis in either kidney. Mild bilateral renal cortical atrophy. Bilateral renal cysts. Mild prostate enlargement measuring 4.2 cm. Mild evidence of bladder outlet obstruction with bladder wall thickening. Moderate sigmoid constipation. Diverticulosis. No evidence of acute diverticulitis.. Disc space narrowing worse at L4-L5 and L5-S1. IMPRESSION: 1. Small RIGHT greater than LEFT pleural effusions with compressive atelectasis in the lung bases. 2. No acute findings in the abdomen or pelvis. 3. No hydronephrosis in either kidney. 4. Bilateral renal cysts. 5. Sigmoid diverticulosis. 6. Mild prostate enlargement with evidence of mild bladder outlet obstruction. 7. No other acute findings.
--- NOTE | 2023-01-16 14:08 | P.PN_ITS ---
Subjective Subjective: yesenia was seen this morning, is at bedside -he reports generalized weakness, denies fever, no cough, no dysuria, does have lightheadedness -denies bloody or black stools -discussed his recurrent falls, and possible syncope epsiode -no chest pain -discussed his anemia, denies bloody or black stools, will transfuse 1 unit prbc, has a history of iron defeciency has recieved treatment of IV iron in november -discussed risk and benefit of holding anticoagulation, xarelto, shared decision making, voiced understanding, all questions answered, hold for now -discussed his hyponatremia -discussed his PNA, and uti will coutinue IV abx -discussed his NSTEMi, will monitor tele, cardiac echo Vitals/I&O/Wt Last Vital Signs Temp 97.1 F L 01/16/23 14:05 Pulse 60 01/16/23 14:05 Resp 16 01/16/23 14:05 BP 124/65 01/16/23 14:05 Pulse Ox 100 01/16/23 14:05 O2 Del Method Room Air 01/16/23 11:20 01/15/23 01/16/23 01/16/23 22:59 06:59 14:59 Intake Total 150 / 1150 200 / 1350 240 / 240 Balance 150 / 1150 200 / 1350 240 / 240 Weight last 48 hrs Weight 80.059 kg Weight 72.575 kg Weight 72.575 kg Physical Exam Narrative: temporal muscle wasting, peripheral muscle wasting, shoulder, arms, thighs, calves Const: COMMON NORMALS: no acute distress and patient oriented x3 Resp: COMMON NORMALS: normal respiratory effort, No retractions, No use of accessory muscles and clear to auscultation bilaterally AUSCULTATION: clear to auscultation bilaterally Cardio: COMMON NORMALS: regular rate, regular rhythm, S1 normal heart sound present and S2 normal heart sound present RATE: regular rate RHYTHM: regular rhythm HEART SOUNDS: S1 normal heart sound present and S2 normal heart sound present GI: COMMON NORMALS: Normal to inspection, nondistended, normoactive bowel sounds present and non-tender Extremity: COMMON NORMALS: no pedal edema Neuro: COMMON NORMALS: patient oriented x3 Psych: COMMON NORMALS: mental status grossly normal Data 01/16/23 04:25 01/16/23 04:25 Micro: Microbiology 01/15/23 14:00 Blood Culture - Preliminary Blood NEGATIVE TO DATE 01/15/23 13:55 Blood Culture - Preliminary Blood NEGATIVE TO DATE 01/15/23 10:28 Urine Culture - Preliminary Urine,Clean Catch A&P Assessment and plan (1) Recurrent falls: -secondary to UTI, PNA, anemia, hyponatremia, physical deconditioning, muscle wasting - His Mektovi can be associated with myopathy though those values are most li kayla secondary to trauma from his falls -His Braftovi can be associated with cardiomyopathy. Last available echo here is from 2020. He has had an echo this year although was done by cardiothoracic surgery provider and reportedly revealed that the valve was functioning okay. Timing of this echo is not known to me. Weakness appears more general than focal. No evidence of arrhythmias though he does have EKGs demonstrating paced and nonpaced rhythms. He has advanced age as a contributor. -multiple falls, with multiple pain complaints will order ct chest abdomen and pelvis (2) Elevated troponin: Noted on admission. No known history of coronary artery disease. Second troponin similar. Has a history of chronic diastolic CHF, atrial fibrillation with pacemaker and TAVR. Also with advanced age. -no chest pain -telemetry monitoring -repeat echo The examination is poor and limited.? The ventricle is poorly ?seen but appears to be normal in size and function without any ?obvious wall motion disturbances.? An estimated ejection ?fraction is 55 to 60%.? Diastolic function not available.? The ?rhythm may be atrial fibrillation. ?Normal right ventricular size and systolic function. ?Catheter/pacemaker wire in the right ventricular cavity. ?Mildly increased left atrial size. ?Mitral valve not well visualized.? There is mitral annular ?calcification.? There may be mild mitral regurgitation. ?Aortic valve not well visualized.? There has been a TAVR.? There ?is at least the expected amount of aortic stenosis however it ?does not appear to be significant.? The mean gradient is 6 mmHg ?suggesting mild aortic stenosis.? No obvious aortic ?insufficiency. ?The previous ultrasound was 11/14/2020.? A TAVR has been ?performed since that time.? Otherwise, there has been no change. (3) Diastolic heart failure: Chronic with acute exacerbation. Has not been taking Lasix which has been prescribed previously. He is on Braftovi which can have an adverse effect of cardiomyopathy. Not sure if it is contributing but something to keep in mind. Has hyponatremia and hypochloremia, hypoalbuminemia and potential indications of volume overload. (4) Normocytic anemia: - (5) Abrasions of multiple sites: Abrasions with skin tears to right forearm and 2 noted to the back. All 3 areas covered with Tegaderm by me during examination (6) Pneumonia: Present on admission. Organism unknown. With episode of vomiting last evening could be secondary to aspiration. Received empiric Levaquin in the emergency room. -start IV rocephin and azithromycione (7) Microscopic hematuria: Present on admission in a patient with chronic anticoagulation. No complaints of urinary symptoms. Chronically incontinent. Does have a history of kidney stones in the past. -ordered renal US (8) Atrial fibrillation: Permanent atrial fibrillation/flutter. Has pacemaker due to history of slow ve ntricular response. Not on any rate controlling medications. Qualifiers: Atrial fibrillation type: longstanding persistent Qualified Code(s): I48.11 - Longstanding persistent atrial fibrillation (9) Chronic anticoagulation: On Xarelto due to atrial fibrillation history, hold given anemia (10) Status post transcatheter aortic valve replacement (TAVR) using bioprosthesis: Secondary to aortic stenosis, done at the end of 2021 early 2022 (11) Hyperlipidemia: Chronically on statin therapy (12) Benign prostate hyperplasia: Chronically on tamsulosin and finasteride (13) History of melanoma: On chronic Mektovi and Braftovi orally, followed with oncology in [place] (14) Chronic fatigue: (15) Hearing loss, bilateral: (16) Advanced age: (17) NSTEMI (non-ST elevated myocardial infarction): (18) Muscle wasting: (19) Protein calorie malnutrition: (20) Physical deconditioning: (21) Anemia: -multifactorial -history of iron defeciency -is on xarelto -concerns for slow GI bleed -hold xarelto -hemmocult stool -iron studies -ct abdomen as above -transfuse 1 unit prbc (22) Hyponatremia: -secondary to poor oral intake, monitor Plan Prior history of diabetes, no longer on treatment Prior history of hypertension, no longer on treatment Difficulty sleeping on doxepin with recent vivid dreams and waking up screaming Inpatient admission At least every shift neurochecks Monitor hemoglobin for further drop check Hemoccult of stool PPI We will hold Xarelto currently until we know he does not have ongoing blood loss Wound care to areas with skin tears Continue empiric Levaquin for coverage of both pulmonary and urinary sources of infection Follow-up pending blood and urine cultures Home statin therapy is currently held due to mildly elevated CK Continue home finasteride and Flomax presently Hold home doxepin secondary to dreams, confusion and waking up screaming along with increasing weakness For now we will allow patient to continue his oral immunotherapy agents for melanoma though need to keep in mind that these could be contributor to presentation if definitive medical etiology beyond advanced age and baseline comorbid conditions is not identified PT and OT evaluations, speech and dietary eval VTE prophylaxis: SCDs, pharmacological DVT prophylaxis currently contraindicated due to chronic Xarelto therapy and current worsening anemia compared to prior labs and bleeding from several skin tear sites GI Prophylaxis: PPI Telemetry: ordered due to known arrhythmia and plan for IV diuresis Benjamin: not currently indicated though patient agreeable if necessary Line(s): peripheral IVs Disposition plan: Home with outpatient follow up to Dr. Wang, his oncologist in [place] and possibly Dr. Mcgarry/Linda Kessler sooner than currently scheduled appointment which is not until April 2023. Depending on clinical course may benefit from home therapy Code Status: Full Code as per discussion with patient's Sharona Dhillon Supportive care otherwise Findings, concerns and plans were discussed with patient and they were given an opportunity to ask questions Attestations Medical Necessity Statement*: patient requires hospitalization for falls, weakness, anemia, pna, uti, nstemi Diagnoses Recurrent falls R29.6 Elevated troponin R79.89 Diastolic heart failure I50.30 Normocytic anemia D64.9 Abrasions of multiple sites T07.XXXA Pneumonia J18.9 Microscopic hematuria R31.29 Atrial fibrillation I48.11 Atrial fibrillation type: longstanding persistent Chronic anticoagulation Z79.01 Status post transcatheter aortic valve replacement (TAVR) using bioprosthesis Z95.3 Hyperlipidemia E78.5 Benign prostate hyperplasia N40.0 History of melanoma Z85.820 Chronic fatigue R53.82 Hearing loss, bilateral H91.93 Advanced age R54 NSTEMI (non-ST elevated myocardial infarction) I21.4 Muscle wasting M62.50 Protein calorie malnutrition E46 Physical deconditioning R53.81 Anemia D64.9 Hyponatremia E87.1
[2023-01-16] MEDS: lidocaine 5% Patch 1 PATCH TOPICAL (15:32)
[2023-01-16] MEDS: ondansetron 2 mg/ML SDV 2 mL 4 MG IVP (20:16)
--- NOTE | 2023-01-16 21:28 | PC.NURSE ---
went in to pts room to place lockett catheter; pt and said they do not want it. Education provided to both pt and ; lockett catheter still refued. made aware.
[2023-01-16 21:53] LABS: Hematocrit 27.1 % (37-53)
[2023-01-16] MEDS: HYDROcodone-acetaminophen 5-325 mg Tablet 1 TAB PO (23:26)
[2023-01-17] VITALS (10 sets, daily range): BP systolic 95–145; BP diastolic 49–78; PULSE 60–67; RESP 14–15; TEMP 36.5–37.6; O2SAT 95–98
[2023-01-17] MEDS: tamsulosin 0.4 mg Capsule PO (05:03)
[2023-01-17] MEDS: finasteride 5 mg Tablet PO (05:03)
[2023-01-17 06:01] LABS: Anion Gap 14.2 (5-19); Blood Urea Nitrogen 19 mg/dL (8-23); Calcium 8.2 mg/dL (8.5-10.5); Carbon Dioxide 20 mmol/L (22-29); Chloride 97 mmol/L (98-107); Glucose 67 mg/dL (65-115); Magnesium 1.7 mg/dL (1.7-2.3); Osmolality Calculated 265 mOsm/kg (285-295); Phosphorus 3.9 mg/dL (2.5-4.5); Potassium 4.2 mmol/L (3.5-5.1); Sodium 127 mmol/L (136-145)
[2023-01-17 06:21] LABS: Basophils % 0.8 %; Eosinophils # 0.3 10^3/uL (0.0-0.8); Eosinophils % 10.7 %; Hematocrit 26.9 % (37-53); Lymphocytes % 37.8 %; Mean Corpuscular HGB Conc 33.1 g/dL (30-55); Mean Corpuscular Hemoglobin 29.4 pg (27-33); Mean Corpuscular Volume 88.8 fl (82-101); Mean Platelet Volume 8.7 fL (7.4-10.4); Monocytes # 0.3 10^3/uL (0.2-0.9); Neutrophils % 37.3 %; Nucleated Red Blood Cells % 0 %; Platelet Count 119 10^3/cmm (157-399); Red Blood Count 3.03 10^6/uL (3.85-5.65); Red Cell Distribution Width 16.7 % (12.1-15.1); White Blood Count 2.62 10^3/uL (3.29-11.43)
[2023-01-17 06:27] LABS: Neutrophils # 0.98 10^3/uL (1.8-7.7)
[2023-01-17] MEDS: azithromycin 500 MG in sodium chloride 0.9% 250 ML 250 MG IV (09:33)
[2023-01-17] MEDS: acetaminophen 325 mg Tablet 650 MG PO (09:34)
[2023-01-17] MEDS: potassium chloride ER 10 mEq Tablet PO (09:34)
[2023-01-17] MEDS: pantoprazole DR 40 mg Tablet PO (09:34)
[2023-01-17] MEDS: docusate sodium 100 mg Capsule PO (09:34)
[2023-01-17] MEDS: cefTRIAXone 1,000 MG in sodium chloride 0.9% (plus) 50 ML 100 MG IV (09:35)
[2023-01-17] MEDS: polyethylene glycol 3350 Pkt 17 gm PO (09:43)
--- NOTE | 2023-01-17 14:06 | PM.PN ---
Subjective Subjective: patient was seen this morning, we discussed his anemia, my concerns for slow gi bleed, discussed holding anticoagulation, discussed risk and benefit, patietn and agreed to hold, does reprot weakness, no syncope, poor appetite, Vitals/I&O/Wt Last Vital Signs Temp 98.2 F 01/17/23 12:00 Pulse 60 01/17/23 12:00 Resp 14 01/17/23 12:00 BP 113/49 01/17/23 12:00 Pulse Ox 98 01/17/23 12:00 O2 Del Method Room Air 01/17/23 12:00 01/16/23 01/17/23 01/17/23 22:59 06:59 14:59 Intake Total 350 / 590 200 / 790 660 / 660 Balance 350 / 590 200 / 790 660 / 660 Weight last 48 hrs Weight 80.059 kg Weight 72.575 kg Physical Exam Const: COMMON NORMALS: no acute distress and patient oriented x3 Resp: COMMON NORMALS: normal respiratory effort, No retractions, No use of accessory muscles and clear to auscultation bilaterally AUSCULTATION: clear to auscultation bilaterally Cardio: COMMON NORMALS: regular rate, regular rhythm, S1 normal heart sound present and S2 normal heart sound present RATE: regular rate RHYTHM: regular rhythm HEART SOUNDS: S1 normal heart sound present and S2 normal heart sound present GI: COMMON NORMALS: Normal to inspection, nondistended, normoactive bowel sounds present and non-tender Extremity: COMMON NORMALS: no pedal edema Neuro: COMMON NORMALS: patient oriented x3 Psych: COMMON NORMALS: mental status grossly normal Data 01/17/23 05:25 01/17/23 05:25 Micro: Microbiology 01/16/23 18:51 Occult Blood (FIT) - Final Stool 01/15/23 14:00 Blood Culture - Preliminary Blood NEGATIVE TO DATE 01/15/23 13:55 Blood Culture - Preliminary Blood NEGATIVE TO DATE 01/15/23 10:28 Urine Culture - Preliminary Urine,Clean Catch A&P Assessment and plan (1) Recurrent falls: -secondary to UTI, PNA, anemia, hyponatremia, physical deconditioning, muscle wasting - His Mektovi can be associated with myopathy though those values are most likely secondary to trauma from his falls -His Braftovi can be associated with cardiomyopathy. Last available echo here is from 2020. He has had an echo this year although was done by cardiothoracic surgery provider and reportedly revealed that the valve was functioning okay. Timing of this echo is not known to me. Weakness appears more general than focal. No evidence of arrhythmias though he does have EKGs demonstrating paced and nonpaced rhythms. He has advanced age as a contributor. -multiple falls, with multiple pain complaints (2) Elevated troponin: Noted on admission. No known history of coronary artery disease. Second troponin similar. Has a history of chronic diastolic CHF, atrial fibrillation with pacemaker and TAVR. Also with advanced age. -no chest pain -telemetry monitoring -repeat echo The examination is poor and limited.? The ventricle is poorly ?seen but appears to be normal in size and function without any ?obvious wall motion disturbances.? An estimated ejection ?fraction is 55 to 60%.? Diastolic function not available.? The ?rhythm may be atrial fibrillation. ?Normal right ventricular size and systolic function. ?Catheter/pacemaker wire in the right ventricular cavity. ?Mildly increased left atrial size. ?Mitral valve not well visualized.? There is mitral annular ?calcification.? There may be mild mitral regurgitation. ?Aortic valve not well visualized.? There has been a TAVR.? There ?is at least the expected amount of aortic stenosis however it ?does not appear to be significant.? The mean gradient is 6 mmHg ?suggesting mild aortic stenosis.? No obvious aortic ?insufficiency. ?The previous ultrasound was 11/14/2020.? A TAVR has been ?performed since that time.? Otherwise, there has been no change. (3) Diastolic heart failure: Chronic with acute exacerbation. Has not been taking Lasix which has been prescribed previously. He is on Braftovi which can have an adverse effect of cardiomyopathy. Not sure if it is contributing but something to keep in mind. Has hyponatremia and hypochloremia, hypoalbuminemia and potential indications of volume overload. (4) Normocytic anemia: - (5) Abrasions of multiple sites: Abrasions with skin tears to right forearm and 2 noted to the back. All 3 areas covered with Tegaderm by me during examination (6) Pneumonia: Present on admission. Organism unknown. With episode of vomiting last evening could be secondary to aspiration. Received empiric Levaquin in the emergency room. -start IV rocephin and azithromycione (7) Microscopic hematuria: Present on admission in a patient with chronic anticoagulation. No complaints of urinary symptoms. Chronically incontinent. Does have a history of kidney stones in the past. (8) Atrial fibrillation: Permanent atrial fibrillation/flutter. Has pacemaker due to history of slow ventricular response. Not on any rate controlling medications. Qualifiers: Atrial fibrillation type: longstanding persistent Qualified Code(s): I48.11 - Longstanding persistent atrial fibrillation (9) Chronic anticoagulation: On Xarelto due to atrial fibrillation history, hold given anemia (10) Status post transcatheter aortic valve replacement (TAVR) using bioprosthesis: Secondary to aortic stenosis, done at the end of 2021 early 2022 (11) Hyperlipidemia: Chronically on statin therapy (12) Benign prostate hyperplasia: Chronically on tamsulosin and finasteride (13) History of melanoma: On chronic Mektovi and Braftovi orally, followed with oncology in [place] (14) Chronic fatigue: (15) Hearing loss, bilateral: (16) Advanced age: (17) NSTEMI (non-ST elevated myocardial infarction): (18) Muscle wasting: (19) Protein calorie malnutrition: (20) Physical deconditioning: (21) Anemia: -multifactorial -history of iron defeciency -is on xarelto -concerns for slow GI bleed, hemmocult postive stool -hold xarelto -hemmocult stool -iron studies -ct abdomen as above -s/p 1 unit prbc (22) Hyponatremia: -secondary to poor oral intake, monitor Plan Prior history of diabetes, no longer on treatment Prior history of hypertension, no longer on treatment Difficulty sleeping on doxepin with recent vivid dreams and waking up screaming Inpatient admission At least every shift neurochecks Monitor hemoglobin for further drop check Hemoccult of stool PPI We will hold Xarelto currently until we know he does not have ongoing blood loss Wound care to areas with skin tears Continue empiric Levaquin for coverage of both pulmonary and urinary sources of infection Follow-up pending blood and urine cultures Home statin therapy is currently held due to mildly elevated CK Continue home finasteride and Flomax presently Hold home doxepin secondary to dreams, confusion and waking up screaming along with increasing weakness For now we will allow patient to continue his oral immunotherapy agents for melanoma though need to keep in mind that these could be contributor to presentation if definitive medical etiology beyond advanced age and baseline comorbid conditions is not identified PT and OT evaluations, speech and dietary eval VTE prophylaxis: SCDs, pharmacological DVT prophylaxis currently contraindicated due to chronic Xarelto therapy and current worsening anemia compared to prior labs and bleeding from several skin tear sites GI Prophylaxis: PPI Telemetry: ordered due to known arrhythmia and plan for IV diuresis Benjamin: not currently indicated though patient agreeable if necessary Line(s): peripheral IVs Disposition plan: Home with outpatient follow up to Dr. Wang, his oncologist in [place] and possibly Dr. Mcgarry/Linda Kessler sooner than currently scheduled appointment which is not until April 2023. Depending on clinical course may benefit from home therapy Code Status: Full Code as per discussion with patient's Sharona Dhillon Supportive care otherwise Findings, concerns and plans were discussed with patient and they were given an opportunity to ask questions Attestations Medical Necessity Statement*: patient requires hospitlization fro anemia, concerns for slow gi bleed, uti, pna Diagnoses Recurrent falls R29.6 Elevated troponin R79.89 Diastolic heart failure I50.30 Normocytic anemia D64.9 Abrasions of multiple sites T07.XXXA Pneumonia J18.9 Microscopic hematuria R31.29 Atrial fibrillation I48.11 Atrial fibrillation type: longstanding persistent Chronic anticoagulation Z79.01 Status post transcatheter aortic valve replacement (TAVR) using bioprosthesis Z95.3 Hyperlipidemia E78.5 Benign prostate hyperplasia N40.0 History of melanoma Z85.820 Chronic fatigue R53.82 Hearing loss, bilateral H91.93 Advanced age R54 NSTEMI (non-ST elevated myocardial infarction) I21.4 Muscle wasting M62.50 Protein calorie malnutrition E46 Physical deconditioning R53.81 Anemia D64.9 Hyponatremia E87.1
[2023-01-17] MEDS: HYDROcodone-acetaminophen 5-325 mg Tablet 1 TAB PO (20:25)
[2023-01-18 03:20] VITALS: BP 166/80; PULSE 60; RESP 13; TEMP 36.9; O2SAT 96
[2023-01-18] MEDS: finasteride 5 mg Tablet PO (05:03)
[2023-01-18] MEDS: tamsulosin 0.4 mg Capsule PO (05:03)
[2023-01-18 05:18] VITALS: PULSE 70
[2023-01-18 05:44] LABS: Basophils # 0.1 10^3/uL (0.0-0.1); Basophils % 1.6 %; Eosinophils # 0.5 10^3/uL (0.0-0.8); Eosinophils % 14.1 %; Hematocrit 27.6 % (37-53); Lymphocytes # 1.2 10^3/uL (0.8-4.8); Lymphocytes % 37.2 %; Mean Corpuscular HGB Conc 33.7 g/dL (30-55); Mean Corpuscular Hemoglobin 30.4 pg (27-33); Mean Corpuscular Volume 90.2 fl (82-101); Mean Platelet Volume 9.5 fL (7.4-10.4); Monocytes # 0.4 10^3/uL (0.2-0.9); Monocytes % 11.6 %; Neutrophils # 1.13 10^3/uL (1.8-7.7); Neutrophils % 35.2 %; Nucleated Red Blood Cells % 0 %; Platelet Count 131 10^3/cmm (157-399); Red Blood Count 3.06 10^6/uL (3.85-5.65); Red Cell Distribution Width 16.5 % (12.1-15.1)
[2023-01-18 06:07] LABS: Anion Gap 14.3 (5-19); Blood Urea Nitrogen 20 mg/dL (8-23); Calcium 8.2 mg/dL (8.5-10.5); Carbon Dioxide 20 mmol/L (22-29); Chloride 100 mmol/L (98-107); Creatinine Clr Calc Pharmacy 60.7185; Glucose 73 mg/dL (65-115); Magnesium 1.8 mg/dL (1.7-2.3); Osmolality Calculated 271 mOsm/kg (285-295); Phosphorus 4.5 mg/dL (2.5-4.5); Potassium 4.3 mmol/L (3.5-5.1); Sodium 130 mmol/L (136-145)
[2023-01-18 07:42] VITALS: BP 151/74; PULSE 64; RESP 22; TEMP 36.6; O2SAT 96
[2023-01-18] MEDS: azithromycin 500 MG in sodium chloride 0.9% 250 ML 250 MG IV (08:41)
[2023-01-18] MEDS: potassium chloride ER 10 mEq Tablet PO (08:45)
[2023-01-18] MEDS: polyethylene glycol 3350 Pkt 17 gm PO (08:45)
[2023-01-18] MEDS: pantoprazole DR 40 mg Tablet PO (08:45)
[2023-01-18] MEDS: docusate sodium 100 mg Capsule PO (08:45)
--- NOTE | 2023-01-18 10:55 | P.DS_ITS ---
Discharge Providers Date of Admission: 01/15/23 15:28 Date of Discharge: January 18, 2023 Attending Provider at Admission: Patricia Oneal MD Attending Provider at Discharge: Roshan Womack MD Primary Care Provider: Nic Wang MD Diagnoses at Discharge Discharge Diagnosis (1) Recurrent falls: Status: Acute (2) Elevated troponin: Status: Acute (3) Diastolic heart failure: Status: Chronic (4) Normocytic anemia: Status: Acute (5) Abrasions of multiple sites: Status: Acute (6) Pneumonia: Status: Acute (7) Microscopic hematuria: Status: Acute (8) Atrial fibrillation: Status: Chronic Qualifiers: Atrial fibrillation type: longstanding persistent Qualified Code(s): I48.11 - Longstanding persistent atrial fibrillation (9) Chronic anticoagulation: Status: Chronic Permanent problem details: xarelto for afib (10) Status post transcatheter aortic valve replacement (TAVR) using bioprosthesis: Status: Chronic (11) Hyperlipidemia: Status: Chronic (12) Benign prostate hyperplasia: Status: Chronic (13) History of melanoma: Status: Chronic Permanent problem details: on oral chemotherapy (14) Chronic fatigue: Status: Chronic (15) Hearing loss, bilateral: Status: Chronic Permanent problem details: hearing aids (16) Advanced age: Status: Acute (17) NSTEMI (non-ST elevated myocardial infarction): Status: Acute (18) Muscle wasting: Status: Acute (19) Protein calorie malnutrition: Status: Acute (20) Physical deconditioning: Status: Acute (21) Anemia: Status: Acute (22) Hyponatremia: Status: Acute Reason for Visit Reason for Visit: Weakness Hospital Course Hospital Course Emmanuel Hidalgo is a 87 year old male who presented to the emergency room with chief complaint of increasing weakness that has been escalating lately.? He had a fall last night.? He was getting ready to go to bed and fell down after losing his balance when he bent over.? A neighbor had to come over to help him get up.? This morning at first he seemed okay after awakening.? He got up and dressed and then used his walker to try to get to the kitchen but about care home there his legs just gave out and he fell down again.? Between the 2 falls he sustained abrasion to his left forearm and several skin tears to his back that have been bleeding.? He also complained of pain in his lower back.? Unclear if he hit his head when he fell.? His was nearby but did not see the fall.? No known loss of consciousness.? He has had chronic problems with fatigue and has had issues with weakness in the past.? He had TAVR done due to a history of aortic stenosis at the beginning of this year or end of last year with the hope that it would help with his symptoms but it has not really made much of a difference.? In addition to aortic stenosis he has a history of chronic atrial fibrillation/flutter.? He had episode of slow ventricular response back in 2016 and subsequently had pacemaker placed.? That pacemaker generator was changed [place] [address] Guy.? He is on chronic anticoagulation in the form of Xarelto.? He follows with Dr. Mcgarry from a cardiac standpoint.? He has been having lower extremity edema.? He has chronic diastolic CHF with ejection fraction that was between 50 and 55% in 2020.? He is supposed to be on diuretic therapy but will not take it.? He has had no complaints of chest pain.? No dizziness or other changes preceding falls.? No focal weakness more general/all over.? Does not really complain of shortness of breath according to his .? He has been having issues with strange dreams and sometimes wakes up screaming and saying strange things to his .? He is on doxepin.? He continues to smoke 2 to 3 cigars a day.? He has had some chills but no reports of any fevers.? He has had a mild cough.? After his fall last night when he sustained multiple skin tears, he had 1 episode of vomiting.? He is incontinent of urine.? No recent change in bowel function.? No report of any melena or hematochezia though when he has to strain a lot due to hard stools he will notice small amounts of blood.? Work-up in the emergency room showed multiple concerns.? Hemoglobin was noted to be 8.5.? This is lower than it has been over the past year.? Baseline troponin was around the 100, CK was elevated at 384, and BNP was elevated at 9208 where prior values earlier this year had been 2800 or so.? Chest x-ray showed groundglass infiltrate in the right lower lobe suspicious for pneumonia.? No pleural effusion was noted and remainder of the lungs were clear.? Given known history, edema, and elevated BNP, he was given a dose of Lasix in the emergency room.? Also noted was some microscopic hematuria for which he received Lasix.? He does have a history of kidney stones but has never required intervention.? Denies any flank pain or changes in urinary symptoms.? He is currently unable to perform ADLs and a week ago was able to get around much better.? He does have a history of melanoma and is on 2 oral chemotherapy agents Mektovi and Braftovi.? Recent comparative lab obtained from oncologist as well as medication records.? This is a 87-year-old male, who presents [facility] for recurrent falls, fatigue, weakness secondary to UTI, pneumonia, anemia, hyponatremia, physical deconditioning, muscle wasting, For his recurrent UTI, likely as associated with urinary retention due to enlarged prostate, urine culture so far negative, completed antibiotic therapy as inpatient For his pneumonia, received IV antibiotics as inpatient, overall clinically im proved, discharged on doxycycline For his anemia, he was monitored as inpatient, did require 1 unit PRBC, no hemodynamic compromise, no bloody or black stools, he is Hemoccult stool was positive, has evidence of iron deficiency anemia, has received iron transfusions back in November 2022. I had an extensive discussion about the risks and benefits of holding anticoagulation, risk including but not limited to CVA and hypercoagulable events, and CAD. However due to her persistent anemia, his recurrent falls, fatigue, weakness, I think a significant component of his symptomatology is related to a slow GI bleed, with anemia, and iron deficiency anemia. In my opinion anticoagulation should be held for at least 2 to 4 weeks, with an EGD consideration in 1 to 2 weeks for finding the source of his anemia, iron deficiency anemia after shared decision making with primary care, general surgery and cardiology. However as we hold anticoagulation there is a risk of CVA as above, but given his persistent symptomatology, in my opinion anticoagulation should be held to monitor his hemoglobin especially as he is required a unit of blood during this hospitalization. Shared decision making, discussed risks and benefits of holding anticoagulation, also presented the option of continuing anticoagulation and monitoring his hemoglobin closely as outpatient, after discussing the risk and benefits of all options, him and his voiced understanding, all consents are, agreed to hold anticoagulation for now. We will have him follow-up with primary care provider as outpatient recheck hemoglobin on Saturday, if hemoglobin drops below 7 will require a unit of blood, monitor for bloody or black stools if so go to emergency room, discharged on Protonix, Carafate, follow general surgery in 1 to 2 weeks for consideration of EGD and colonoscopy. in my opinion, I think the answer for his anemia, and his slow GI bleed needs to be answered, as he has a risk of future anemia, and complications associated given he will need to be on some sort of anticoagulation given his A-fib. For his hematuria, likely secondary to BPH, does have renal cyst follow-up with urology, For his elevated troponins, no chest pain complaints, repeat echocardiogram, no significant wall motion abnormalities, EF 55 to 60%, continue to monitor as outpatient Physical Exam Const: COMMON NORMALS: no acute distress and patient oriented x3 Resp: COMMON NORMALS: normal respiratory effort, No retractions, No use of accessory muscles and clear to auscultation bilaterally AUSCULTATION: clear to auscultation bilaterally Cardio: COMMON NORMALS: regular rate, regular rhythm, S1 normal heart sound present and S2 normal heart sound present RATE: regular rate RHYTHM: regular rhythm HEART SOUNDS: S1 normal heart sound present and S2 normal heart sound present GI: COMMON NORMALS: Normal to inspection, nondistended, normoactive bowel sounds present and non-tender Extremity: COMMON NORMALS: no pedal edema Neuro: COMMON NORMALS: patient oriented x3 Psych: COMMON NORMALS: mental status grossly normal Discharge Data Studies Completed and Pending Completed Studies During Hospitalization Category Date Time Status CT chest abdomen pelvis [[place] [id number] Cat Scan 01/16/23 13:33 Completed ] Routine CT head wo con* [id number] Stat Cat Scan 01/15/23 12:57 Completed XR chest 1V portable [id number] Urgent Exams 01/15/23 09:08 Completed XR lumbar spine 2-3V* [id number] Stat Exams 01/15/23 09:08 Completed CV. echo limited [id number] Routine Ultrasound 01/15/23 17:56 Completed US renal BI* [id number] Routine Ultrasound 01/16/23 08:24 Completed Pending at discharge Category Date Time Status Blood Culture Stat Lab 01/15/23 14:00 Results Complete Blood Count w/Auto AM LABS Lab 01/19/23 04:00 Ordered Laboratory Results WBC 3.20 10^3/uL (3.29-11.43) L 01/18/23 05:09 RBC 3.06 10^6/uL (3.85-5.65) L 01/18/23 05:09 Hgb 9.30 g/dL (11.27-16.99) L 01/18/23 05:09 Hct 27.6 % (37-53) L 01/18/23 05:09 MCV 90.2 fl (82-101) 01/18/23 05:09 MCH 30.4 pg (27-33) 01/18/23 05:09 MCHC 33.7 g/dL (30-55) 01/18/23 05:09 RDW 16.5 % (12.1-15.1) H 01/18/23 05:09 Plt Count 131 10^3/cmm (157-399) L 01/18/23 05:09 MPV 9.5 fL (7.4-10.4) 01/18/23 05:09 Neut % (Auto) 35.2 % 01/18/23 05:09 Lymph % (Auto) 37.2 % 01/18/23 05:09 Cassia % (Auto) 11.6 % 01/18/23 05:09 Eos % (Auto) 14.1 % 01/18/23 05:09 Baso % (Auto) 1.6 % 01/18/23 05:09 Neut # (Auto) 1.13 10^3/uL (1.8-7.7) L 01/18/23 05:09 Lymph # (Auto) 1.2 10^3/uL (0.8-4.8) 01/18/23 05:09 Cassia # (Auto) 0.4 10^3/uL (0.2-0.9) 01/18/23 05:09 Eos # (Auto) 0.5 10^3/uL (0.0-0.8) 01/18/23 05:09 Baso # (Auto) 0.1 10^3/uL (0.0-0.1) 01/18/23 05:09 Nucleated RBC % (auto) 0 % 01/18/23 05:09 Nucleated RBCs # 0.0 /100WBC 01/18/23 05:09 PT 16.60 SECONDS (12.1-14.9) H 01/16/23 04:25 INR 1.30 (0.8-1.2) H 01/16/23 04:25 Sodium 130 mmol/L (136-145) L 01/18/23 05:09 Potassium 4.3 mmol/L (3.5-5.1) 01/18/23 05:09 Chloride 100 mmol/L (98-107) 01/18/23 05:09 Carbon Dioxide 20 mmol/L (22-29) L 01/18/23 05:09 Anion Gap 14.3 (5-19) 01/18/23 05:09 BUN 20 mg/dL (8-23) 01/18/23 05:09 Creatinine 1.0 mg/dL (0.7-1.2) 01/18/23 05:09 GFR Calculation Not Reportable 01/18/23 05:09 Glucose 73 mg/dL (65-115) 01/18/23 05:09 Calculated Osmolality 271 mOsm/kg (285-295) L 01/18/23 05:09 Calcium 8.2 mg/dL (8.5-10.5) L 01/18/23 05:09 Phosphorus 4.5 mg/dL (2.5-4.5) 01/18/23 05:09 Magnesium 1.8 mg/dL (1.7-2.3) 01/18/23 05:09 Iron 15 ug/dL (59-158) L 01/16/23 04:25 TIBC 149 mcg/dl 01/16/23 04:25 % Saturation 10.0 % (20-50) L 01/16/23 04:25 Unsat Iron Binding 134 ug/dL (112-347) 01/16/23 04:25 Ferritin 114 ng/mL (30-400) 01/16/23 04:25 Total Bilirubin 0.3 mg/dL (0.15-1.2) 01/15/23 08:28 AST 21 U/L (0-40) 01/15/23 08:28 ALT 15 U/L (0-41) 01/15/23 08:28 Alkaline Phosphatase 58 U/L (40-130) 01/15/23 08:28 Creatine Kinase 443 U/L (39-308) H* 01/16/23 04:25 CK-MB (CK-2) 5.9 ng/mL (0-10.4) 01/15/23 08:28 CK-MB (CK-2) Rel Index % (0.0-5.3) 01/15/23 08:28 Troponin T Baseline 105 ng/L (0-15) H* 01/15/23 08:28 Troponin T 120 Minute 104.8 ng/L (0-15) H 01/15/23 10:37 Delta Troponin T -0.2 ABS# (0-10) L 01/15/23 10:37 Troponin T Hi Sens 6Hr 106.3 ng/L (0-15) H 01/15/23 13:55 Troponin T Hi Sens 6Hr Delta 1.3 ng/L (0-12) 01/15/23 13:55 C-Reactive Protein 52.3 mg/L (0.0-4.9) H 01/16/23 04:25 NT-Pro-B Natriuret Pep 9208 pg/mL (0-450) H 01/15/23 08:28 Total Protein 6.0 g/dL (6.6-8.7) L 01/15/23 08:28 Albumin 3.2 g/dL (3.5-5.2) L 01/15/23 08:28 Globulin 2.8 g/dL (1.3-4.6) 01/15/23 08:28 Folate 18.7 ng/mL (4.5-32.2) 01/16/23 04:25 Procalcitonin 0.14 ng/mL (0-0.5) 01/16/23 04:25 TSH 4.08 uIU/mL (0.27-4.20) 01/16/23 04:25 Urine Color Yellow (Yellow) 01/15/23 10:28 Urine Appearance Clear (CLEAR) 01/15/23 10:28 Urine pH 6.5 (5-7) 01/15/23 10:28 Ur Specific [place] 1.010 (1.005-1.030) 01/15/23 10:28 Urine Protein Neg (Negative) 01/15/23 10:28 Urine Glucose (UA) 1+ (Normal) H 01/15/23 10:28 Urine Ketones Negative (Negative) 01/15/23 10:28 Urine Blood 3+ (Negative) H 01/15/23 10:28 Urine Nitrate Negative (Negative) 01/15/23 10:28 Urine Bilirubin Neg (Negative) 01/15/23 10:28 Urine Urobilinogen Neg mg/dL (Negative) 01/15/23 10:28 Ur Leukocyte Esterase Negative (Negative) 01/15/23 10:28 Urine RBC 80-100 /hpf (0-2) H 01/15/23 10:28 Urine WBC 0-4 /hpf (0-5) H 01/15/23 10:28 Ur Squamous Epith Cells 0-4 /hpf (0-5) H 01/15/23 10:28 Amorphous Sediment Not Reportable 01/15/23 10:28 Urine Bacteria Trace /hpf (NONE) 01/15/23 10:28 Blood Type A Positive 01/15/23 13:55 Rho(D) Type Rh positive 01/15/23 13:55 Antibody Screen Positive 01/15/23 13:55 Antibody Identification Anti-E 01/15/23 13:55 Crossmatch See Detail 01/15/23 13:55 Vitals Last Vital Signs Temp 97.8 F 01/18/23 07:42 Pulse 64 01/18/23 07:42 Resp 22 H 01/18/23 07:42 BP 151/74 01/18/23 07:42 Pulse Ox 96 01/18/23 07:42 O2 Del Method Room Air 01/18/23 07:42 Discharge Plan Discharge Patient Disposition: Home Health Service Condition: Stable Prescriptions: New pantoprazole 40 mg Tablet,Delayed Release (Dr/Ec) 40 mg PO BIDWM 30 Days Qty: 60 0RF docusate sodium 100 mg Capsule 100 mg PO BID 30 Days Qty: 60 0RF Carafate 1 gram tablet 1 g PO BID 28 Days Qty: 56 0RF doxycycline hyclate 100 mg tablet 100 mg PO BID 3 Days Qty: 6 0RF Continued tamsulosin 0.4 mg capsule 0.4 mg PO QAM finasteride [Proscar] 5 mg tablet 5 mg PO QAM atorvastatin 40 mg tablet 40 mg PO QAM doxepin 25 mg capsule See Rx Instructions .ROUTE .COMPLEX Rx Instructions: 25 mg orally one hour before bedtime. Miralax 17 gram Powder In Packet 17 g PO DAILY hydroxyzine HCl 25 mg Tablet 25 mg PO QID PRN (Reason: Itching) megestrol 625 mg/5 mL (125 mg/mL) Suspension 5 ml PO DAILY Patient Comments: does not take regularly due to cost encorafenib 75 mg Capsule 450 mg PO DAILY binimetinib 15 mg Tablet 45 mg PO Q12H Held Xarelto 20 mg tablet 20 mg PO QAM Hold Instructions: Resume on 02/04/23. Discharge Orders: Discharge Order (Routine); Ordered 01/18/23 Ordered By: oRshan Womack Referrals: [facility] [Outside] Shaw Daniel MD [Physician] - 1 week (egd and colosnocpy We have notified your physician's clinic of the need for a follow-up appointment to be scheduled. If you have not heard from them within the next 2 business days, please call them directly. ) Tg Mcgarry MD [Physician] - 2 weeks (We have notified your physician's clinic of the need for a follow-up appointment to be scheduled. If you have not heard from them within the next 2 business days, please call them directly. ) Vasile Valdes MD [Referring] - 1-3 days (We have notified your physician's clinic of the need for a follow-up appointment to be scheduled. If you have not heard from them within the next 2 business days, please call them directly. ) Nic Wang MD [Primary Care Provider] - 01/30/23 2:50 pm Discharge Diet: Cardiac Discharge Activity: Resume usual activity Patient Instructions: Anemia, Sucralfate (By mouth), Doxycycline (By mouth), Prednisone (By mouth), Laxative, Stool Softeners (By mouth), Heart Attack (DC), Heart Failure (ED), CHF Stoplight, Opioid Safety Activity Restrictions/Additional Instructions: ? If you have any bloody or black stools please go to emergency room, ? Please have your primary care provider recheck your hemoglobin on Saturday, ? If her hemoglobin drops below 7, please come back to the emergency room for transfusion, ? Continue Protonix, Carafate, ? Continue to hold Xarelto, until you see general surgery and cardiology, ? If you have any strokelike symptoms Please call 911 over the emergency room ? Monitor for UTIs, ? Follow-up with urology Discharge Attestations Time Spent in Discharge Care*: greater than 30 min Quality Metrics Clinical Quality Measures [ No reported AMI, CVA or VTE this stay] Coding Level of Care Code 79719 Total time (in minutes) for Discharge: 45 Diagnoses Recurrent falls R29.6 Elevated troponin R79.89 Diastolic heart failure I50.30 Normocytic anemia D64.9 Abrasions of multiple sites T07.XXXA Pneumonia J18.9 Microscopic hematuria R31.29 Atrial fibrillation I48.11 Atrial fibrillation type: longstanding persistent Chronic anticoagulation Z79.01 Status post transcatheter aortic valve replacement (TAVR) using bioprosthesis Z95.3 Hyperlipidemia E78.5 Benign prostate hyperplasia N40.0 History of melanoma Z85.820 Chronic fatigue R53.82 Hearing loss, bilateral H91.93 Advanced age R54 NSTEMI (non-ST elevated myocardial infarction) I21.4 Muscle wasting M62.50 Protein calorie malnutrition E46 Physical deconditioning R53.81 Anemia D64.9 Hyponatremia E87.1
[2023-01-18 11:15] VITALS: BP 147/87; PULSE 59; RESP 22; TEMP 36.6; O2SAT 100
[2023-01-18 12:39] VITALS: BP 147/87; PULSE 59; RESP 22; TEMP 36.6; O2SAT 100
--- NOTE | 2023-01-18 12:40 | PC.SOCIAL ---
IMM Update pg 2 of IMM updated and reviewed w/ patient. Copy provided and copy dated, initialed and placed in chart.
== END 2023-01-18 13:15 | disposition home health service (06) | DRG 193 ==
LOC: ER 12:23 → MEDSURG 15:29
PROVIDERS: Physician Assistant; Admitting Provider Hospitalist; Emergency Provider Family Medicine; PCP Family Medicine; Visit Provider Family Medicine
DX: J18.9 Pneumonia, unspecified organism (principal); I50.33 Acute on chronic diastolic (congestive) heart failure; E87.1 Hypo-osmolality and hyponatremia; I48.11 Longstanding persistent atrial fibrillation; N39.0 Urinary tract infection, site not specified; R31.29 Other microscopic hematuria; Z87.442 Personal history of urinary calculi; M62.50 Muscle wasting and atrophy, not elsewhere classified, unspecified site; F17.290 Nicotine dependence, other tobacco product, uncomplicated; R79.89 Other specified abnormal findings of blood chemistry; R53.82 Chronic fatigue, unspecified; E78.5 Hyperlipidemia, unspecified; H91.93 Unspecified hearing loss, bilateral; Z97.4 Presence of external hearing-aid; N40.1 Benign prostatic hyperplasia with lower urinary tract symptoms; R33.8 Other retention of urine; N28.1 Cyst of kidney, acquired; D50.9 Iron deficiency anemia, unspecified; C43.9 Malignant melanoma of skin, unspecified; I49.5 Sick sinus syndrome; Z95.0 Presence of cardiac pacemaker; Z95.3 Presence of xenogenic heart valve; Z79.01 Long term (current) use of anticoagulants
CPT/HCPCS: 36415; 36430; 51798; 70450; 71045; 71250; 72100; 74176; 76770; 80048; 80053; 80503; 81001; 82274; 82550; 82553; 82728; 82746; 83540; 83550; 83735; 83880; 84100; 84145; 84443; 84484; 85014; 85018; 85025; 85610; 86140; 86850; 86870; 86900; 86920; 87040; 87086; 92610; 93005; 93308; 96365; 96375; 97110; 97116; 97162; 97166; 97530; 97535; 99285; J0456; J0696; J1940; J1956; J2405; J7030; J7050; P9040; Q3014

== ENCOUNTER → 2023-02-07 10:57 | Outpatient (BNVA) | payer MEDICARE, OTHER, SELFPAY | PROVIDERS: PCP Family Medicine; Visit Provider Nurse Practitioner Family | DX: I48.11 Longstanding persistent atrial fibrillation (principal); I11.0 Hypertensive heart disease with heart failure; I50.32 Chronic diastolic (congestive) heart failure; Z95.0 Presence of cardiac pacemaker; F17.200 Nicotine dependence, unspecified, uncomplicated | CPT/HCPCS: 99214 ==

== ENCOUNTER → 2023-04-11 09:32 | Outpatient (BNVA) | payer MEDICARE, OTHER, SELFPAY | PROVIDERS: PCP Family Medicine; Visit Provider Nurse Practitioner Family | DX: I48.11 Longstanding persistent atrial fibrillation (principal); Z79.01 Long term (current) use of anticoagulants; Z95.0 Presence of cardiac pacemaker; Z95.3 Presence of xenogenic heart valve; I11.0 Hypertensive heart disease with heart failure; I50.32 Chronic diastolic (congestive) heart failure; F17.210 Nicotine dependence, cigarettes, uncomplicated | CPT/HCPCS: 99214 ==